=== PATIENT | male | born 1950 | race Caucasian/White ===

== ENCOUNTER 2019-04-20 18:51 | Inpatient (IN) | payer MEDICARE ==
[~2019-04-20] VITALS: Ht 198.1 cm; Wt 129.7 kg
[~2019-04-20 18:51] MED LIST: 24HOUR ALLERGY10 MG PO; ALBU90OI INH; ATOR40TA PO; Aspirin EC81 MG PO; Atarax10 MG PO; CETI5; CHOL10002 PO; COLCHICINE0.6 MG PO; DILT180 PO; DIVA500EC PO; FURO40 PO; Flonase 0.05% N16 GM; GABA400 PO; HYDHCL25 PO; HYDR-86 PO; Hydrocodone-Ap1 EA20 PO; INSDET100 SC; INSULANPEN PO; LIDOCAINE PATCH; LOPE2C PO; Lomotil Tablet1 EACH PO; METO50ER PO; Novolog100 UNIT/1 SQ; OFEV150 MG PO; PANT40 PO; PERIDEX15 ML MM; PRAZ1 PO; PRAZ5 PO; PRED20 PO; PYRI100 PO; RIFA550T2 PO; SERT50 PO; TRAZ50 PO; WARF5; XARELTO20 MG PO; [UNRECOGNIZED DRUG - CODE] PO; [UNRECOGNIZED DRUG - SUPPLY]
[2019-04-20 19:48] LABS: BASOPHILS ABSOLUTE AUTO 0.04 K/mm3 (0.00-0.23); BASOPHILS PERCENT AUTO 1 % (0-2); EOSINOPHILS ABSOLUTE AUTO 0.09 K/mm3 (0.00-0.68); EOSINOPHILS PERCENT AUTO 1 % (0-6); Hematocrit 34.4 % (37.0-53.0); Hemoglobin 11.3 g/dL (13.5-17.5); IMMATURE GRAN ABSOLUTE AUTO 0.39 K/mm3 (0.00-0.10); IMMATURE GRAN PERCENT AUTO 5 % (0-1); LYMPHOCYTES ABSOLUTE AUTO 1.39 K/mm3 (0.84-5.20); LYMPHOCYTES PERCENT AUTO 17 % (21-46); MONOCYTES ABSOLUTE AUTO 0.69 K/mm3 (0.16-1.47); MONOCYTES PERCENT AUTO 8 % (4-13); Mean Corpuscular HGB 33.3 pg (26.0-34.0); Mean Corpuscular HGB Conc 32.8 g/dL (31.5-36.5); Mean Corpuscular Volume 102 fL (80-100); Mean Platelet Volume 9.8 fL (9.1-12.4); NEUTROPHILS ABSOLUTE AUTO 5.63 K/mm3 (1.96-9.15); NEUTROPHILS PERCENT AUTO 68 % (41-73); Platelet Count 113 K/mm3 (150-400); RDW Coefficient Variation 13.5 % (11.7-14.2); RDW Standard Deviation 50.8 fL (35.1-46.3); Red Blood Cell Count 3.39 M/mm3 (4.30-5.90); White Blood Cell Count 8.23 K/mm3 (4.00-11.30)
[2019-04-20 20:00] LABS: Alanine Aminotransfer (ALT/SGP 21 U/L (12-78); Albumin, Blood 2.3 g/dL (3.4-5.0); Albumin/Globulin Ratio 0.7 (0.8-1.8); Alk Phos 78 U/L (50-136); Anion Gap 2 mmol/L (6-16); Aspartate Aminotrans (AST/SGOT 18 U/L (12-37); Bilirubin, Total 0.5 mg/dL (0.1-1.0); Blood Urea Nitrogen 10 mg/dL (8-24); Bun/Creatinine Ratio 10.8 (12.0-20.0); CO2, Blood 28 mmol/L (21-32); Calcium, Blood 8.2 mg/dL (8.5-10.1); Chloride, Blood 108 mmol/L (98-108); Creatinine, Blood 0.92 mg/dL (0.60-1.20); Globulin, Blood 3.4 g/dL (2.2-4.0); Glomerular Filtration Rate >60 (60-); Glucose, Blood 332 mg/dL (70-99); Potassium, Blood 4.6 mmol/L (3.5-5.5); Sodium, Blood 138 mmol/L (136-145); Total Protein, Blood 5.7 g/dL (6.4-8.2)
[2019-04-20 20:06] LABS: International Normalized Ratio 1.09; Prothrombin Time Results 11.5 Sec (9.7-11.5)
[2019-04-20] MEDS ORDERED: THERAPEUTIC SH177 ML TOP (21:29)
[2019-04-20] MEDS ORDERED: Questran4 GM PO (21:29)
[2019-04-20] MEDS ORDERED: MOTION RELIEF25 MG PO (21:35)
[2019-04-20] MEDS ORDERED: MAGNESIUM OXID500 MG PO (21:35)
[2019-04-20] MEDS ORDERED: POTCHL20ER PO (21:36)
[2019-04-20] MEDS ORDERED: TAMS.4ER PO (21:38)
[2019-04-20] MEDS ORDERED: Florastor250 MG PO (21:38)
[2019-04-20] MEDS ORDERED: VALACYCLOVIR1000 MG PO (21:38)
[2019-04-20] MEDS ORDERED: Hair, Skin & N1 EACH PO (21:41)
--- NOTE | 2019-04-21 00:15 | NUR ---
ADMISSION NOTE PT ARRIVED TO UNIT VIA STRECTHER AT 2326. AMBULATED TO BED INDEPENDENTLY, PAIN AND WINCING WHEN RISING AND DURING AMBULATION. REPORTED PAIN IN RECTAL AREA. PT AMBULATES TO BR AND HAS EPISODE OF BRIGHT RED STOOL FROM RECTUM. ASSISTED PT TO BED. ORIENTED PT TO RM AND CALL LT. ADMISSION COMPLETE. ASSUMING CARE OF PT.
--- NOTE | 2019-04-21 06:15 | NUR ---
SHIFT SUMMARY PT ADMITTED EARLIER IN SHIFT, C/O RECTAL BLEEDING AND PAIN AFTER COLONSCOPY 6 DAYS AGO. PT IS HAVING BRIGHT RED BLOOD ON TISSUE AFTER WIPING. PAIN IS MOST SEVERE WHEN AMBULATING AND SITTING, RELIEVED BEST BY LAYING ON SIDE. PT IS RECIEVING 25 MCG IV FENTANYL Q4H FOR PAIN WHICH PROVIDES ADEQUATE RELIEF. NPO PER ORDERS. CONSULT CALLED TO DR ABBOTT ANSWERING SERVICE, WILL ROUND IN AM. WILL CONT TO MONITOR AND PROVIDE CARE UNTIL PRESUMED BY ONCOMING RN.
--- NOTE | 2019-04-21 13:39 | NUR ---
PT TO DAY SURGERY FOR I&D. FAMILY AT BEDSIDE.
--- NOTE | 2019-04-21 13:52 | NUR ---
"DAY SURGERY RN | REPORT OFF TO MAKI MENG."
--- NOTE | 2019-04-21 16:17 | NUR ---
PT ARRIVED BACK ON THE MEDICAL UNIT FROM DAY SURGERY. PT IS AWAKE AND DENIES PAIN AT THIS TIME. PT REPORTED A MODERATE AMOUNT OF BLOOD IN THE TOILET AFTER HE SAT AND URINATED, THIS IS NORMAL PER OR NURSE. LORRAINE DRAIN INTACT, NO ACTIVE BLEEDING NOTED UPON ASSESSMENT. PT REQUESTED WATER AND ICE CREAM WHICH HE TOLERATED WELL. PTS SATS 83-85% ON ROOM AIR. PLACE ON 3L O2 VIA NASAL CANNULA AND SATS ARE AT 95%. DR. CAMPBELL STATED PT OK TO DISCHARGE FROM A SURGICAL STANDPOINT LIT [place] NOTIFIED OF SATS AND BLOOD AND DECIDED TO KEEP PT OVERNIGHT AND MONITOR SATS.
--- NOTE | 2019-04-21 17:23 | NUR ---
ASSUMED CARE OF THIS PT FOR DAY SHIFT. PT NPO STATUS TRANSFER TO OR FOR I/D. PT RETURNED TO MEDICAL UNIT AFTER PROCEDURE. PT SATS WERE LOW AND O2 WAS ADMINISTERED. KEEPING OVERNIGHT FOR OBSERVATION AND FOLLOW UP BLOOD WORK IN THE MORNING. PT DIET CHANGED TO ADA. PT RESTING COMFORTABLY.
--- NOTE | 2019-04-21 22:04 | NUR ---
WEENED OFF O2 WEENED DOWN TO RA FROM 2L VIA NC. EPS E/U ON RA, O2 SATS >94% ON CONT PULSE OX. WILL CONT TO MONITOR.
--- NOTE | 2019-04-21 22:04 | NUR ---
HYPERGLYCEMIA CBG IS 407 AFTER 10 UNITS HUMULIN R AND 10 UNITS LANTUS. REPORTED DIEGO CANTRELL. ORDERS TO RECHECK IN 1 HR IN GO FROM THERE. WILL CONT TO MONITOR.
[2019-04-22 05:19] LABS: BASOPHILS ABSOLUTE AUTO 0.02 K/mm3 (0.00-0.23); BASOPHILS PERCENT AUTO 0 % (0-2); EOSINOPHILS PERCENT AUTO 0 % (0-6); Hematocrit 34.2 % (37.0-53.0); Hemoglobin 11.3 g/dL (13.5-17.5); IMMATURE GRAN ABSOLUTE AUTO 0.33 K/mm3 (0.00-0.10); IMMATURE GRAN PERCENT AUTO 4 % (0-1); LYMPHOCYTES ABSOLUTE AUTO 1.38 K/mm3 (0.84-5.20); LYMPHOCYTES PERCENT AUTO 15 % (21-46); MONOCYTES ABSOLUTE AUTO 0.78 K/mm3 (0.16-1.47); MONOCYTES PERCENT AUTO 8 % (4-13); Mean Corpuscular HGB 32.8 pg (26.0-34.0); Mean Platelet Volume 9.6 fL (9.1-12.4); NEUTROPHILS ABSOLUTE AUTO 6.88 K/mm3 (1.96-9.15); NEUTROPHILS PERCENT AUTO 73 % (41-73); Platelet Count 125 K/mm3 (150-400); RDW Coefficient Variation 13.4 % (11.7-14.2); RDW Standard Deviation 48.9 fL (35.1-46.3); Red Blood Cell Count 3.45 M/mm3 (4.30-5.90); White Blood Cell Count 9.39 K/mm3 (4.00-11.30)
[2019-04-22 05:22] LABS: Mean Corpuscular Volume 99 fL (80-100)
--- NOTE | 2019-04-22 05:43 | NUR ---
SHIFT SUMMARY POST OP VITALS REMAIN STABLE. CBG ELEVATED EARLY TONIGHT, HOWEVER HAS BEGAN TRENDING DOWN. LAST WAS 349 @ 2300 LAST NIGHT. NO FURTHER ORDERS GIVEN BY HOSPITALIST. PIN MU DRAINING TO I&D IS WNL, MINIMAL BRIGHT RED RECTAL BLEEDING ON NOTED ON SHEETS WHEN PT IS UP. PT IS INDEPENDENT IN RM. PAIN IS WELL-CONTROLLED WITH PO NORCO PRN, HAS NOT NEEDED ANY PRN PAIN MEDS TONIGHT, STATES PAIN IS "CLOSE TO NONE" THIS AM. TITRATED TO RA, CONT PULSE OX IN PLACE. CPAP AT NIGHT. PT IS A POSS D/C BACK HOME TODAY. WILL CONT TO MONITOR AND PROVIDE CARE UNTIL PRESUMED BY ONCOMING RN.
[2019-04-22] MEDS ORDERED: AMOCLA875 PO (13:28)
--- NOTE | 2019-04-22 15:44 | NUR ---
1515 PT DISCHARGE REVIEWED WITH PT AND SPOUSE. PT VERBALIZED UNDERSTANDING MEDS AND INSTRUCT. IV PULLED INTACT. NO TELE. PT WHEELED TO DOOR BY ME.
== END 2019-04-22 15:17 | disposition home or self-care (01) | DRG 345 ==
LOC: ER 18:51 → MEDS 21:51
PROVIDERS: Emergency Medicine; Internal Medicine; Surgery; ADMIT Family Medicine
PROC: 0D9P0ZZ Drainage of Rectum, Open Approach (ICD-10-PCS; principal; 2019-04-21 12:30)
DX: K61.1 Rectal abscess (principal); J96.11 Chronic respiratory failure with hypoxia; I48.2 Chronic atrial fibrillation; I10 Essential (primary) hypertension; J84.10 Pulmonary fibrosis, unspecified; E11.65 Type 2 diabetes mellitus with hyperglycemia; G47.33 Obstructive sleep apnea (adult) (pediatric); N40.0 Benign prostatic hyperplasia without lower urinary tract symptoms; E78.5 Hyperlipidemia, unspecified; D69.6 Thrombocytopenia, unspecified; E11.40 Type 2 diabetes mellitus with diabetic neuropathy, unspecified; G89.29 Other chronic pain; M54.5 Low back pain; Z79.82 Long term (current) use of aspirin; Z79.4 Long term (current) use of insulin; Z79.51 Long term (current) use of inhaled steroids; Z79.899 Other long term (current) drug therapy; Z79.01 Long term (current) use of anticoagulants
CPT/HCPCS: 36415; 74177; 80053; 82947; 84484; 85025; 85610; 87070; 87075; 87076; 87185; 87205; 93005; 93010; 94660; 94761; 94762; 96365-59; 96375; 96376; 99285-25; A9270-GY; J1815; J2405; J2543; J2704; J3010; J7050; J7120; Q9967

== ENCOUNTER 2020-02-29 13:50 | Emergency (ER) | payer OTHER, MEDICARE ==
[~2020-02-29] VITALS: Ht 198.1 cm; Wt 134.7 kg
[~2020-02-29 13:50] MED LIST changes: +AMOCLA875 PO; +ATOR20 PO; +Cymbalta20 MG PO; +Florastor250 MG PO; +Hair, Skin & N1 EACH PO; +MAGNESIUM OXID500 MG PO; +MOTION RELIEF25 MG PO; +MULTIPLE VITAM1 EACH PO; +OYSTER SHELL 51 EACH PO; +POTCHL20ER PO; +PYRIDOXINE HCL PO; +Questran4 GM PO; +TAMS.4ER PO; +THERAPEUTIC SH177 ML TOP; +VALACYCLOVIR1000 MG PO; +ZYRTEC10 M2 PO
[2020-02-29] MEDS ORDERED: ALBU90OI INH (14:07)
[2020-02-29] MEDS ORDERED: BACL10 PO (14:08)
[2020-02-29] MEDS ORDERED: ATOR40TA PO (14:08)
[2020-02-29] MEDS ORDERED: BIOTENE PO (14:09)
[2020-02-29] MEDS ORDERED: VITAMIN D-32000 UNIT PO (14:10)
[2020-02-29 14:11] LABS: BASOPHILS ABSOLUTE AUTO 0.02 K/mm3 (0.00-0.23); BASOPHILS PERCENT AUTO 0 % (0-2); EOSINOPHILS PERCENT AUTO 1 % (0-6); Hematocrit 39.3 % (37.0-53.0); Hemoglobin 13.1 g/dL (13.5-17.5); IMMATURE GRAN ABSOLUTE AUTO 0.11 K/mm3 (0.00-0.10); IMMATURE GRAN PERCENT AUTO 1 % (0-1); LYMPHOCYTES ABSOLUTE AUTO 1.52 K/mm3 (0.84-5.20); LYMPHOCYTES PERCENT AUTO 19 % (21-46); MONOCYTES ABSOLUTE AUTO 0.51 K/mm3 (0.16-1.47); MONOCYTES PERCENT AUTO 6 % (4-13); Mean Corpuscular HGB 31.4 pg (26.0-34.0); Mean Corpuscular HGB Conc 33.3 g/dL (31.5-36.5); Mean Corpuscular Volume 94 fL (80-100); Mean Platelet Volume 9.8 fL (9.1-12.4); NEUTROPHILS ABSOLUTE AUTO 5.93 K/mm3 (1.96-9.15); NEUTROPHILS PERCENT AUTO 73 % (41-73); Platelet Count 125 K/mm3 (150-400); RDW Coefficient Variation 12.9 % (11.7-14.2); RDW Standard Deviation 44.3 fL (35.1-46.3); Red Blood Cell Count 4.17 M/mm3 (4.30-5.90); White Blood Cell Count 8.19 K/mm3 (4.00-11.30)
[2020-02-29] MEDS ORDERED: PERIDEX15 ML MM (14:11)
[2020-02-29] MEDS ORDERED: FLUT.05NI (14:14)
[2020-02-29] MEDS ORDERED: GABA400 PO (14:15)
[2020-02-29] MEDS ORDERED: FURO40 PO (14:15)
[2020-02-29] MEDS ORDERED: HYDROCODONE-AC1 EAC7 PO (14:16)
[2020-02-29] MEDS ORDERED: LEVEMIR100 UNIT/1 SC (14:18)
[2020-02-29] MEDS ORDERED: INSULIN AS100 UNIT/7 SC (14:18)
[2020-02-29] MEDS ORDERED: LIDO700A20 TOP (14:19)
[2020-02-29] MEDS ORDERED: ONDA4 PO (14:22)
[2020-02-29] MEDS ORDERED: NITR.4SL SL (14:22)
[2020-02-29] MEDS ORDERED: PRAZ2 PO (14:23)
[2020-02-29] MEDS ORDERED: PSYSENPA PO (14:23)
[2020-02-29] MEDS ORDERED: SACCHAROMYCES250 MG PO (14:24)
[2020-02-29 15:03] LABS: Alanine Aminotransfer (ALT/SGP 36 U/L (12-78); Albumin, Blood 2.9 g/dL (3.4-5.0); Albumin/Globulin Ratio 0.9 (0.8-1.8); Alk Phos 140 U/L (50-136); Anion Gap 5 mmol/L (6-16); Aspartate Aminotrans (AST/SGOT 34 U/L (12-37); Bilirubin, Total 0.5 mg/dL (0.1-1.0); Blood Urea Nitrogen 18 mg/dL (8-24); Bun/Creatinine Ratio 15.9 (12.0-20.0); CO2, Blood 29 mmol/L (21-32); Calcium, Blood 8.7 mg/dL (8.5-10.1); Chloride, Blood 101 mmol/L (98-108); Creatinine, Blood 1.13 mg/dL (0.60-1.20); Globulin, Blood 3.4 g/dL (2.2-4.0); Glomerular Filtration Rate >60 (60-); Glucose, Blood 393 mg/dL (70-99); Potassium, Blood 4.5 mmol/L (3.5-5.5); Sodium, Blood 135 mmol/L (136-145); Total Protein, Blood 6.3 g/dL (6.4-8.2)
[2020-02-29 15:43] LABS: Source, Urine Clean Catch
[2020-02-29 15:47] LABS: Appearance, Urine Clear (Clear); Bilirubin, Urine Neg (Neg); Blood, Urine 4+ (Neg); Color, Urine Yellow (P-Yellow); Glucose Qualitative, Urine 4+ (Neg); Ketones, Urine Neg (Neg); Leukocyte Esterase, Urine Neg (Neg); Nitrite, Urine Neg (Neg); Protein, Urine Neg (Neg); Urobilinogen, Urine NORM (Normal)
[2020-02-29] MEDS ORDERED: MECL25 PO (15:52)
[2020-02-29 15:55] LABS: Bacteria Rare /hpf; Squamous Epithelial Cells Not Seen /hpf (Few); White Blood Cells, Urine 0-2 /hpf (0-5)
== END 2020-02-29 16:07 | disposition home or self-care (01) ==
LOC: ER 13:50
PROVIDERS: Emergency Medicine
DX: H81.10 Benign paroxysmal vertigo, unspecified ear (principal); Z88.8 Allergy status to other drugs, medicaments and biological substances; Z79.899 Other long term (current) drug therapy; Z79.4 Long term (current) use of insulin; E11.9 Type 2 diabetes mellitus without complications; I48.91 Unspecified atrial fibrillation; I10 Essential (primary) hypertension; E78.5 Hyperlipidemia, unspecified; J44.9 Chronic obstructive pulmonary disease, unspecified; G47.33 Obstructive sleep apnea (adult) (pediatric)
CPT/HCPCS: 70450; 80053; 81001; 85025; 93005; 93010; 99285-25

== ENCOUNTER → 2020-06-18 | Outpatient (CLI) | payer OTHER, MEDICARE ==
[~2020-06-18] MED LIST changes: +BACL10 PO; +BIOTENE PO; +FLUT.05NI; +HYDROCODONE-AC1 EAC7 PO; +INSULIN AS100 UNIT/7 SC; +LEVEMIR100 UNIT/1 SC; +LIDO700A20 TOP; +MECL25 PO; +NITR.4SL SL; +ONDA4 PO; +PRAZ2 PO; +PSYSENPA PO; +SACCHAROMYCES250 MG PO; +VITAMIN D-32000 UNIT PO
[2020-06-18 20:01] LABS: Percent Saturation 64.4 % (20.0-50.0)
== END | disposition home or self-care (01) ==
LOC: LAB 17:48
PROVIDERS: Internal Medicine Hematology & Oncology
DX: E83.119 Hemochromatosis, unspecified (principal)
CPT/HCPCS: 82728; 83540; 83550

== ENCOUNTER → 2021-02-22 | Outpatient (CLI) | payer OTHER, MEDICARE ==
[2021-02-22 15:11] LABS: Percent Saturation 60.9 % (20.0-50.0)
== END | disposition home or self-care (01) ==
LOC: LAB SHORT 14:07 → LAB 14:07
PROVIDERS: Internal Medicine Hematology & Oncology
DX: E83.119 Hemochromatosis, unspecified (principal)
CPT/HCPCS: 82728; 83540; 83550

== ENCOUNTER 2022-07-18 00:14 | Emergency (ER) | payer OTHER ==
[~2022-07-18] VITALS: Ht 198.1 cm; Wt 127.0 kg
== END 2022-07-18 02:43 | disposition home or self-care (01) ==
LOC: ER 00:14
DX: T84.021A Dislocation of internal left hip prosthesis, initial encounter (principal); E11.9 Type 2 diabetes mellitus without complications; I48.91 Unspecified atrial fibrillation; E78.5 Hyperlipidemia, unspecified; I10 Essential (primary) hypertension; J44.9 Chronic obstructive pulmonary disease, unspecified; D64.9 Anemia, unspecified; N40.0 Benign prostatic hyperplasia without lower urinary tract symptoms; G47.33 Obstructive sleep apnea (adult) (pediatric); Z88.8 Allergy status to other drugs, medicaments and biological substances; Z79.899 Other long term (current) drug therapy; Z79.01 Long term (current) use of anticoagulants; X58.XXXA Exposure to other specified factors, initial encounter
CPT/HCPCS: 73502; J2704; J7030

== ENCOUNTER 2022-07-22 13:22 | Emergency (ER) | payer OTHER ==
[~2022-07-22] VITALS: Ht 198.1 cm; Wt 129.3 kg
[2022-07-22] MEDS ORDERED: CEPH500 PO (19:26)
== END 2022-07-22 19:42 | disposition home or self-care (01) ==
LOC: ER 13:22
DX: T84.021A Dislocation of internal left hip prosthesis, initial encounter (principal); L08.9 Local infection of the skin and subcutaneous tissue, unspecified; E11.9 Type 2 diabetes mellitus without complications; Y83.8 Other surgical procedures as the cause of abnormal reaction of the patient, or of later complication, without mention of misadventure at the time of the procedure; Z79.02 Long term (current) use of antithrombotics/antiplatelets; Z79.899 Other long term (current) drug therapy; Z79.4 Long term (current) use of insulin
CPT/HCPCS: 36415; 73502; J1170; J2405; J2704; J7030

== ENCOUNTER 2022-08-04 13:16 | Emergency (ER) | payer OTHER ==
[~2022-08-04] VITALS: Ht 198.1 cm; Wt 124.7 kg
[~2022-08-04 13:16] MED LIST changes: +CEPH500 PO
== END 2022-08-04 17:20 | disposition home or self-care (01) ==
LOC: ER 13:16
DX: T84.021A Dislocation of internal left hip prosthesis, initial encounter (principal); Y79.2 Prosthetic and other implants, materials and accessory orthopedic devices associated with adverse incidents; E11.42 Type 2 diabetes mellitus with diabetic polyneuropathy; I48.91 Unspecified atrial fibrillation; Z79.899 Other long term (current) drug therapy; Z79.4 Long term (current) use of insulin; Z79.01 Long term (current) use of anticoagulants
CPT/HCPCS: 27266; 72170; 73502; 96374-59; 96375-59; 99284-25; J1170; J2405; J2704; J7030

== ENCOUNTER 2022-08-11 19:55 | Emergency (ER) | payer OTHER ==
[~2022-08-11] VITALS: Ht 198.1 cm; Wt 122.5 kg
== END 2022-08-11 21:42 | disposition home or self-care (01) ==
LOC: ER 19:55
DX: T84.021A Dislocation of internal left hip prosthesis, initial encounter (principal); E11.9 Type 2 diabetes mellitus without complications; Y79.3 Surgical instruments, materials and orthopedic devices (including sutures) associated with adverse incidents; Z79.02 Long term (current) use of antithrombotics/antiplatelets; Z79.899 Other long term (current) drug therapy
CPT/HCPCS: 73502; J2704; J7030

== ENCOUNTER 2022-08-29 21:46 | Emergency (ER) | payer OTHER ==
[~2022-08-29] VITALS: Ht 198.1 cm; Wt 127.0 kg
[2022-08-29 22:50] LABS: Calcium, Ionized (POC) 1.16 mmol/L (1.10-1.46); Chloride (POC) 102 mmol/L (98-108); Creatinine (POC) 0.8 mg/dL (0.8-1.3); Glucose (ISTAT POC) 142 mg/dL (70-99); Potassium (POC) 3.9 mmol/L (3.5-5.5); Sodium (POC) 141 mmol/L (135-148); Total CO2 (POC) 28 mmol/L (21-32)
== END 2022-08-30 01:32 | disposition home or self-care (01) ==
LOC: ER 21:46
PROVIDERS: Emergency Medicine
DX: T84.021A Dislocation of internal left hip prosthesis, initial encounter (principal); E11.9 Type 2 diabetes mellitus without complications; Y83.8 Other surgical procedures as the cause of abnormal reaction of the patient, or of later complication, without mention of misadventure at the time of the procedure; X50.1XXA Overexertion from prolonged static or awkward postures, initial encounter; Z96.642 Presence of left artificial hip joint; Z79.02 Long term (current) use of antithrombotics/antiplatelets; Z79.899 Other long term (current) drug therapy; Z79.4 Long term (current) use of insulin
CPT/HCPCS: 73501; 73502; 80047; 85014; J2704; J3010; J7030

== ENCOUNTER 2022-09-10 20:30 | Emergency (ER) | payer OTHER ==
[~2022-09-10] VITALS: Ht 198.1 cm; Wt 131.5 kg
[2022-09-10] MEDS ORDERED: HYDCHL25 PO (21:42)
[2022-09-10] MEDS ORDERED: FAMO10 PO (21:42)
== END 2022-09-11 01:47 | disposition home or self-care (01) ==
LOC: ER 20:30
DX: T84.021A Dislocation of internal left hip prosthesis, initial encounter (principal); Y79.2 Prosthetic and other implants, materials and accessory orthopedic devices associated with adverse incidents; E11.42 Type 2 diabetes mellitus with diabetic polyneuropathy; I48.91 Unspecified atrial fibrillation; Z79.899 Other long term (current) drug therapy; Z79.4 Long term (current) use of insulin; Z79.01 Long term (current) use of anticoagulants
CPT/HCPCS: 27265; 73501; 73502; 96374-59; 99152; 99284-25; J1170; J2704

== ENCOUNTER 2023-01-09 19:01 | Inpatient (IN) | payer OTHER ==
[~2023-01-09] VITALS: Ht 198.1 cm; Wt 121.0 kg
[~2023-01-09 19:01] MED LIST changes: +FAMO10 PO; +HYDCHL25 PO
[2023-01-09] MEDS ORDERED: JARDIANCE25 MG (19:21)
[2023-01-09] MEDS ORDERED: HYDPAM50 PO (19:23)
[2023-01-09 19:35] LABS: BASOPHILS ABSOLUTE AUTO 0.02 K/mm3 (0.00-0.23); BASOPHILS PERCENT AUTO 0 % (0-2); EOSINOPHILS ABSOLUTE AUTO 0.11 K/mm3 (0.00-0.68); EOSINOPHILS PERCENT AUTO 1 % (0-6); Hematocrit 48.3 % (37.0-53.0); IMMATURE GRAN ABSOLUTE AUTO 0.11 K/mm3 (0.00-0.10); IMMATURE GRAN PERCENT AUTO 1 % (0-1); LYMPHOCYTES ABSOLUTE AUTO 1.79 K/mm3 (0.84-5.20); LYMPHOCYTES PERCENT AUTO 23 % (21-46); MONOCYTES ABSOLUTE AUTO 0.67 K/mm3 (0.16-1.47); MONOCYTES PERCENT AUTO 9 % (4-13); Mean Corpuscular HGB 30.9 pg (26.0-34.0); Mean Corpuscular HGB Conc 33.1 g/dL (31.5-36.5); Mean Corpuscular Volume 93 fL (80-100); Mean Platelet Volume 10.1 fL (9.1-12.4); NEUTROPHILS PERCENT AUTO 66 % (41-73); Platelet Count 142 K/mm3 (150-400); RDW Coefficient Variation 13.2 % (11.7-14.2); RDW Standard Deviation 46.2 fL (35.1-46.3); Red Blood Cell Count 5.17 M/mm3 (4.30-5.90)
[2023-01-09 19:47] LABS: Albumin, Blood 2.9 g/dL (3.4-5.0); Albumin/Globulin Ratio 0.9 (0.8-1.8); Bilirubin, Total 0.5 mg/dL (0.1-1.0); Bun/Creatinine Ratio 18.1 (12.0-20.0); Calcium, Blood 8.7 mg/dL (8.5-10.1); Creatinine, Blood 0.94 mg/dL (0.60-1.20); Globulin, Blood 3.3 g/dL (2.2-4.0); Potassium, Blood 4.3 mmol/L (3.5-5.5); Total Protein, Blood 6.2 g/dL (6.4-8.2)
[2023-01-09 22:50] VITALS: BP 148/84
[2023-01-09] MEDS ORDERED: HYDHCL25 (23:52)
[2023-01-10] VITALS (20 sets, daily range): BP systolic 102–151; BP diastolic 61–94
[2023-01-10 05:07] LABS: BASOPHILS ABSOLUTE AUTO 0.02 K/mm3 (0.00-0.23); BASOPHILS PERCENT AUTO 0 % (0-2); EOSINOPHILS ABSOLUTE AUTO 0.14 K/mm3 (0.00-0.68); EOSINOPHILS PERCENT AUTO 2 % (0-6); Hematocrit 47.2 % (37.0-53.0); Hemoglobin 15.7 g/dL (13.5-17.5); IMMATURE GRAN ABSOLUTE AUTO 0.05 K/mm3 (0.00-0.10); IMMATURE GRAN PERCENT AUTO 1 % (0-1); LYMPHOCYTES ABSOLUTE AUTO 1.37 K/mm3 (0.84-5.20); LYMPHOCYTES PERCENT AUTO 19 % (21-46); MONOCYTES ABSOLUTE AUTO 0.59 K/mm3 (0.16-1.47); MONOCYTES PERCENT AUTO 8 % (4-13); Mean Corpuscular HGB 30.8 pg (26.0-34.0); Mean Corpuscular HGB Conc 33.3 g/dL (31.5-36.5); Mean Corpuscular Volume 93 fL (80-100); Mean Platelet Volume 10.1 fL (9.1-12.4); NEUTROPHILS ABSOLUTE AUTO 5.24 K/mm3 (1.96-9.15); NEUTROPHILS PERCENT AUTO 71 % (41-73); Platelet Count 114 K/mm3 (150-400); RDW Coefficient Variation 13.4 % (11.7-14.2); RDW Standard Deviation 46.1 fL (35.1-46.3); White Blood Cell Count 7.41 K/mm3 (4.00-11.30)
[2023-01-10 05:27] LABS: Calcium, Blood 8.3 mg/dL (8.5-10.1); Potassium, Blood 4.6 mmol/L (3.5-5.5)
--- NOTE | 2023-01-10 06:07 | NUR ---
SHIFT SUMMARY PT ER ADMIT THIS SHIFT FOR R HIP FRACTURE AFTER GLF. PT HAS BEEN ADMITTED FOR SURGERY POSSIBLY TODAY, HE HAS BEEN NPO SINCE MIDNIGHT. PT PAIN HAS BEEN MANAGED PER EMAR WITH EFFECT. PT HAS SEVERAL CHRONIC FOOT WOUNDS [facility] PICTURES TAKEN OF WOUNDS AND THEY HAVE BEEN CLEANED AND REDRESSED. PT REPORTS CHRONIC NEUROPATHY IN LOWER EXT. HX OF TYPE 2 DM. VITALS ARE STABLE. NO ACUTE CHANGES SINCE ADMISSION, BED IN LOWEST POSITION, CALL LIGHT WITHIN REACH.
--- NOTE | 2023-01-10 11:30 | NUR ---
ARRIVAL TO ROOM PT ARRIVED TO THE ROOM FROM PACU AT APPROXIMATELY 1125. UPON ARRIVAL PT WAS DIAPHORETIC. HR ELEVATED 110-119 UPON ARRIVAL, PT DENIED DIZZINESS, CHEST PAIN AND SHORTNESS OF BREATH. R HIP DRESSING C/D/I. PT ABLE TO MOVE BLE. PULSES PRESENT AND PALPABLE TO BLE.
--- NOTE | 2023-01-10 12:00 | NUR ---
HOME MEDS HOME MED LIST REQUESTED FROM PATIENTS PHARMACY, PT REPORTED [facility]. SOME MEDICATIONS MISSING FROM PT'S [facility] LIST. PT STATES HE ALSO GETS MEDICATION AT [facility]. PT ALSO ASKED HIS TO BRING IN HOME MEDICATIONS FOR CLARIFICATION.
[2023-01-10] MEDS ORDERED: BASAGLAR K100 UNIT/6 SC (12:10)
--- NOTE | 2023-01-10 12:40 | NUR ---
TACHYCARDIA PT BECAME INCREASINGLY DIAPHORETIC AND STARTED TO COMPLAIN OF SHORTNESS OF BREATH. TELE MONITOR SHOWED PT IN AFIB WITH HR UP TO 150. DR. WHITE NOTIFIED AT METOPROLOL IV WAS GIVEN TO LOWER HR. PT RESPONDED WELL AND HR DROPPED DOWN TO 119. PT REPORTED SHORTNESS OF BREATH STARTED TO RESOLVE. DR. WHITE AT THE BEDSIDE.
--- NOTE | 2023-01-10 14:30 | NUR ---
SHORTNESS OF BREATH PT STARTED TO COMPLAIN OF RETURN OF SHORTNESS OF BREATH AT 1340. PT PALE AND DIAPHORETIC. RESP RATE AND EFFORT INCREASED. PT ALSO COMPLAINING OF L SHOULDER PAIN ON INSIPRATION. MESSAGE LEFT FOR DR. WHITE AT 1346. SPOKE WITH DR. WHITE AT 1350 REGARDING CONCERNS. EKG COMPLETED. CHEST XRAY AND TROPONIN ORDERED. FENTAYL GIVEN BY WALE MENG FOR PAIN. SHORTNESS OF BREATH AND SHOULDER PAIN RESOLVED WITHOUT FURTHER INTERVENTION.
[2023-01-10] MEDS ORDERED: SYNJARDY XR 121 EAC1 PO (14:57)
[2023-01-10] MEDS ORDERED: CHLORHEXIDINE TOP (15:14)
--- NOTE | 2023-01-10 16:00 | NUR ---
HOME MEDICATION LIST UPDATED AND COMPLETED AFTER FAMILY BROUGHT AND LIST WAS AGAIN CLARIFIED WITH THE PATIENT.
--- NOTE | 2023-01-10 16:00 | NUR ---
DR. WHITE NOTIFIED OF TROPONIN RESULTS, XRAY RESULTS AND EKG RHYTHM.
--- NOTE | 2023-01-10 17:15 | NUR ---
SHIFT SUMMARY PT IS POD#0 FROM R HIP PINNING WITH DR. BABCOCK. PAIN MANAGED WITH FENTAYL POST-OP. PT IS TOLERATING PO. PT HAD AFIB WITH RVR POST-OP, PT IMPROVED, SEE NOTE. FAMILY AT THE BEDSIDE FOR SUPPORT.
[2023-01-11 00:19] VITALS: BP 118/66
[2023-01-11 04:50] LABS: BASOPHILS ABSOLUTE AUTO 0.03 K/mm3 (0.00-0.23); BASOPHILS PERCENT AUTO 0 % (0-2); EOSINOPHILS ABSOLUTE AUTO 0.18 K/mm3 (0.00-0.68); EOSINOPHILS PERCENT AUTO 2 % (0-6); Hematocrit 45.5 % (37.0-53.0); Hemoglobin 14.8 g/dL (13.5-17.5); IMMATURE GRAN ABSOLUTE AUTO 0.07 K/mm3 (0.00-0.10); IMMATURE GRAN PERCENT AUTO 1 % (0-1); LYMPHOCYTES ABSOLUTE AUTO 1.22 K/mm3 (0.84-5.20); LYMPHOCYTES PERCENT AUTO 15 % (21-46); MONOCYTES ABSOLUTE AUTO 0.61 K/mm3 (0.16-1.47); MONOCYTES PERCENT AUTO 7 % (4-13); Mean Corpuscular HGB 30.6 pg (26.0-34.0); Mean Corpuscular HGB Conc 32.5 g/dL (31.5-36.5); Mean Corpuscular Volume 94 fL (80-100); NEUTROPHILS PERCENT AUTO 75 % (41-73); Platelet Count 96 K/mm3 (150-400); RDW Coefficient Variation 13.9 % (11.7-14.2); RDW Standard Deviation 48.1 fL (35.1-46.3); Red Blood Cell Count 4.83 M/mm3 (4.30-5.90); White Blood Cell Count 8.41 K/mm3 (4.00-11.30)
[2023-01-11 05:08] LABS: Bun/Creatinine Ratio 22.4 (12.0-20.0); Calcium, Blood 8.1 mg/dL (8.5-10.1); Creatinine, Blood 1.07 mg/dL (0.60-1.20); Magnesium, Blood 1.9 mg/dL (1.6-2.4); Potassium, Blood 4.6 mmol/L (3.5-5.5)
--- NOTE | 2023-01-11 05:10 | NUR ---
SHIFT SUMMARY NO ACUTE CHANGES OVERNIGHT, POD 0 R HIP PINNING. PT HAS RESTED MOST OF THE NIGHT, PAIN WELL CONTROLLED WITH OXYCODONE 5 MG. PT MEDICATED FOR PAIN PER EMAR. POST OP VITALS ARE STABLE, RATE IS CONTROLLED ON TELE. BULKY DRESSING INTACT TO RIGHT HIP CLEAN AND DRY. PT CONTINUES TO TOLERATE PO INTAKE. IVF INFUSING T/O THE SHIFT. BED IN LOWEST POSITION, CALL LIGHT WITHIN REACH.
[2023-01-11 05:11] VITALS: BP 123/75
[2023-01-11 07:13] VITALS: BP 143/86
[2023-01-11 14:35] VITALS: BP 135/84
[2023-01-11 18:55] VITALS: BP 140/86
--- NOTE | 2023-01-11 19:59 | NUR ---
SHIFT SUMMARY PT IS POD#1 FROM R HIP PINNING WITH DR. BABCOCK. PT GOT OOB TO THE RECLINER TODAY AND TOLERATED WELL. PT REPORTS SOME CONCERNS ABOUT PAIN MANAGEMENT AND REPORTED OXYCODONE IS NOT LASTING 6 HOURS, DR. WHITE NOTIFIED. DESPITE PAIN PT WAS ABLE TO GET OOB, WORK WITH THERAPY AND SIT IN THE RECLINER. VSS. REPORT GIVEN TO ANUPAM MENG.
[2023-01-11 22:25] VITALS: BP 158/88
--- NOTE | 2023-01-11 23:15 | NUR ---
PT WITH PRIOR EPISODE OF A FIB WITH RVR NOTED POSTOP. REPORTED RESOLVED WITH RESUME OF METOPROLOL.PT C/O SOB WITH MINIMAL ACTIVITY IN BED TO USE URINAL. PT DID NOT STAND OR MOVE TO EDGE OF BED.MOTIVATIONAL SPEAKER REPORTS PT HAS HAD SPIKES OF HEART RATE UP TO 120 WITH ACTIVITY. PT VERB HE HAS BEEN SOB WITH MINIMAL MOVEMENT IN BED SINCE OR AND NOW REPORTS THIS HAS INCREASED AND HAS TAKEN LONGER TO RECOVER.RESP RATE 28 INCREASED 02 TO 5L N/C.PT ALSO C/O CHEST PRESSURE POINTS TO AREA OF HEART.PT VERB THIS ALSO HAS BEEN HAPPENING SINCE POSTOP, BUT AGAIN STATES HAS INCREASED.PT VERB HX OF OPEN PERICARDIAL WINDOW DONE APPROX 3+ YRS AGO AND HAS NOT SEEN CARDIOOLGY FOR FOLLOW UP FOR 1+ YEAR AND REPORTS HAS NOT HAD ECHO DONE FOR " A LONG TIME".PT REPORTS THIS CHEST PRESSURE TO BE ONGOING WITH INTERMITTENT ACTIVITY AND PT STATES PRESSURE NOW FEELING VERY MUCH LIKE IT FELT PRIOR TO PERICARDIAL WINDOW OPENING.PT STATING HE DOES NOT BELIEVE HE WAS DIZZY PRIOR TO HIS FALL BRINGING HIM TO HOSPITAL, BUT STATES HE IS CONCERNED IT MAY BE RELATED TO HIS CARDIAC CONDITION. I CALLED DR BANUELOS AND ADVISED OF ABOVE.DR ABARCA FOR ECHO THURSDAY AND WILL FURTHER REVIEW AND PUT IN ORDERS APPROPRIATE.
[2023-01-12 04:30] LABS: Hematocrit 44.1 % (37.0-53.0); Hemoglobin 14.8 g/dL (13.5-17.5); Mean Corpuscular HGB 31.1 pg (26.0-34.0); Mean Corpuscular HGB Conc 33.6 g/dL (31.5-36.5); Mean Corpuscular Volume 93 fL (80-100); Mean Platelet Volume 9.5 fL (9.1-12.4); Platelet Count 90 K/mm3 (150-400); RDW Coefficient Variation 13.4 % (11.7-14.2); RDW Standard Deviation 45.8 fL (35.1-46.3); Red Blood Cell Count 4.76 M/mm3 (4.30-5.90); White Blood Cell Count 7.08 K/mm3 (4.00-11.30)
[2023-01-12 05:19] VITALS: BP 148/93
--- NOTE | 2023-01-12 06:38 | NUR ---
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
[2023-01-12 07:52] VITALS: BP 158/86
[2023-01-12 14:42] VITALS: BP 139/90
--- NOTE | 2023-01-12 18:44 | NUR ---
SHIFT SUMMARY ALERT, ORIENTED, PLEASANT. RESTING IN BED FOR MOST OF DAY PENDING ECHO RESULTS. DID ASSISTE PATIENT UP TO RECLINER FOR DINNER, TOLERATED WELL. REQUIRES 2L O2 VIA NC. TELE AFIB. TOLERATING ADA DIET AND LIQUIDS. VOIDING WELL. AQUACEL C/D/I. VOIDING WELL. PAIN CONTROLLED WITH PO PERCOCET. WILL REPORT OFF TO MASTER RIGGER RN.
[2023-01-12 20:06] VITALS: BP 125/91
[2023-01-13 04:26] VITALS: BP 115/81
--- NOTE | 2023-01-13 07:26 | NUR ---
SHIFT SUMMARY PT A&OX4, PLEASANT AND COOPERATIVE WITH CARE. NO ACUTE CHANGES. MEDICATED FOR PAIN PER EMAR. TOLERATING PO INTAKE, NO NAUSEA. REMAINS ON 2L O2, SATS >90. 1 ASSIST WITH FWW. AQUACEL TO R HIP C/D/I. CALLS APPROPRIATELY, CALL LIGHT WITHIN REACH.
[2023-01-13 07:39] VITALS: BP 136/82
--- NOTE | 2023-01-13 11:11 | NUR ---
Pt. is awake in bed and welcomes my visit. Pt. is pleasant but is unsettled by the recurring issues he has had with multiple hip issues. Listen with empathy and a calming presence. Facilitate a life review and establish rapport. Prayed with Pt. Pt. 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 Pt. verbalized gratitude for the spiritual care visit and shook this gastroenterologist's hand. Will remain avilable to Pt.
[2023-01-13 14:44] VITALS: BP 136/97
--- NOTE | 2023-01-13 18:12 | NUR ---
SHIFT SUMMARY POD3 L HIP PINNING, A/OX4, VSS, TOLERATING PO, ABLE TO AMBULATE WITH FWW/GB/NURSE ASSIST, PT HAS LONG LEGS WHICH MAKES STANDING FROM THE CHAIR AND TOILET DIFFICULT BUT HE IS ABLE TO DO SO WITH SOME ASSISTANCE, WORKED WITH THERAPY TODAY, PENDING TRANSFER TO SNF FOR REHAB, NO ACUTE EVENTS THIS SHIFT, CALL LIGHT IN REACH, WILL CTM AND REPORT TO MATHIEU BO RN.
[2023-01-13 19:51] VITALS: BP 142/95
[2023-01-14 04:47] VITALS: BP 148/92
--- NOTE | 2023-01-14 04:51 | NUR ---
SHIFT SUMMARY POD4 RIGHT HIP PINNING. DRESSING IS C/D/I, SENSATION AND CIRCULATION IS INTACT IN RLE. VSS. TELE READS AFIB. PT SLEPT WELL T/O THE NIGHT. VOIDING W/O DIFFICULTY. TOLLERATING PO INTAKE W/O N/V. DID NOT AMBULATE T/O THE NIGHT D/T SLEEPING. NO ACUTE EVENTS NOTED. PLAN FOR PT TO D/C TO SNF WHEN A BED IS AVAILABLE. THE PATIENT IS CURRENTLY RESTING, IN NO DISTRESS, CALL LIGHT IN REACH
[2023-01-14 06:40] LABS: Hematocrit 43.8 % (37.0-53.0); Hemoglobin 14.7 g/dL (13.5-17.5); Mean Corpuscular HGB 30.4 pg (26.0-34.0); Mean Corpuscular HGB Conc 33.6 g/dL (31.5-36.5); Mean Corpuscular Volume 91 fL (80-100); Mean Platelet Volume 10.1 fL (9.1-12.4); Platelet Count 100 K/mm3 (150-400); RDW Coefficient Variation 13.2 % (11.7-14.2); RDW Standard Deviation 43.8 fL (35.1-46.3); Red Blood Cell Count 4.83 M/mm3 (4.30-5.90); White Blood Cell Count 5.53 K/mm3 (4.00-11.30)
[2023-01-14 07:04] VITALS: BP 162/91
[2023-01-14 14:42] VITALS: BP 154/99
--- NOTE | 2023-01-14 15:24 | NUR ---
SHIFT SUMMARY: POST OP DAY 4 FOLLOWING RIGHT HIP PINNING. SURGICAL SITE APPEARS C/D/I WITH AQUACEL IN PLACE. PATIENT REPORTS PAIN AT SITE OF INCISION. TREATED WITH ORAL ANALESICS. PATIENT A/OX4. VITAL SIGNS WNL. ELEVATED BLOOD SUGAR LEVEL AT LUNCH. TREATED WITH HUMALOG LISPRO INSULIN INJECTION. PATIENT IS A SBA WITH FWW. AMBULATED MULTIPLE TIMES TO TOILET WITH SUCCESSFUL BM AND NO REPORTED DIFFICULTIES URINATING. PATIENT RECEIVING ADEQUATE NUTRITION INTAKE EVIDENT BY COMPLETION OF ALL MEALS. PATIENT REPORTS NO NEW NUMBNESS AND TINGLING. FOOT WOUNDS ASSESSED AND REDRESSED WITH MEPILEX ON LEFT HEEL AND RIGHT SIDE OF FOOT. PATIENT RECEVING 2L O2 VIA NC. PATIENT SITTING IN RECLINER WITH CALL LIGHT IN REACH. LEGS ELEVATED. PATIENT AWAITING DISCHARGE TO SNF, FOLLOWING AUTHORIZATION OF INSURANCE.
--- NOTE | 2023-01-14 15:53 | NUR ---
SHIFT SUMMARY: POD 4 RIGHT HIP PINNING PATIENT IS A&OX4. VS ARE WNL AND IS ON HIS BASELINE OXYGEN WITH 2L NC. PAIN IS MANAGED WITH ORAL PAIN MEDICATIONS. HIS RIGHT HIP HAS AN AQUACEL THAT IS C/D/I. PATIENT HAS A HX OF NEUROPATHY AND REPORTS THAT IT IS AT HIS BASELINE WITH NO NEW NUMBNESS. HE IS ABLE TO MOVE ALL FINGERS AND TOES WHEN ASKED. NEW MEPELIX DRESSINGS WERE APPLIED TO BOTH HEELS THAT ARE ALSO C/D/I. HE IS A SBA WITH FWW AND GAIT BELT. HE IS VOIDING AND HAVING BMS WELL TOLERATING PO INTAKE. PATIENT CALLS APPROPRIATELY. HE IS LAYING IN BED NOW WITH CALL LIGHT IN REACH. THE PLAN IS FOR THE PATIENT TO DISCHARGE TO A SNF ONCE INSURANCE HAS BEEN APPROVED.
[2023-01-14 19:43] VITALS: BP 164/83
[2023-01-15 04:09] VITALS: BP 136/87
--- NOTE | 2023-01-15 04:28 | NUR ---
SHIFT SUMMARY POD5 RIGHT HIP PINNING. SENSATION AND CIRCULATION REMAINS INTACT. DRESSING IS C/D/I. VSS, TELE READS AFIB 80'S. PT SLEPT WELL T/O THE NIGHT. OOB TO USE THE RESTROOM WITH MIN ASSIT, FWW AND GT BELT. TOLLERATING PO INTAKE W/O N/V. VOIDING W/O DIFFICULTY, PASSING FLATTUS. MEDICATED FOR PAIN WTIH PERCOCET. NO ACUTE EVENTS NOTED. PLAN FOR PT TO [facility]. THE PATIENT IS CURRENTLY SLEEPING, IN NO DISTRESS, CALL LIGHT IN REACH
[2023-01-15 07:05] VITALS: BP 133/87
--- NOTE | 2023-01-15 07:15 | NUR ---
PATIENT CONSENT STATEMENT. PATIENT CONSENTED THIS 2ND YEAR [facility] [place] PARTICIPATE IN HIS CARE TODAY.
[2023-01-15 09:52] VITALS: BP 118/82
--- NOTE | 2023-01-15 14:02 | NUR ---
Pt. is awake in bed and welcomes my visit. Pt. is pleasant, and displays a positive spirit as he welcomes me Facilitated an update of prognosis plans, and Pt. displayed evidence of awareness and engagement. In our previous visit, the Pt. displayed eviudence of a spiritual breakthough. Considered matters of culture. Pt. verbalizes gratitude for the spiritual care visit.
[2023-01-15 15:16] VITALS: BP 115/81
--- NOTE | 2023-01-15 17:06 | NUR ---
END OF SHIFT SUMMARY. PT'S INCISION IS CLEAN, DRY, AND INTACT WITH SCANT DRAINAGE AND AQUACEL INPLACE. PT MEDICATED FOR PAIN WITH TYLENOL AND PERCOCET X1 WITH GOOD RELIEF. PT TOLERATING PO INTAKE. O2 REMAINING ABOVE 92% WITH O2 VIA NC.
[2023-01-15 19:32] VITALS: BP 128/82
[2023-01-16 04:57] VITALS: BP 137/83
[2023-01-16 07:50] VITALS: BP 130/94
[2023-01-16 15:12] VITALS: BP 144/97
--- NOTE | 2023-01-16 18:05 | NUR ---
PT AMBULATING IN ROOM WITH 1 PERSON ASSIST. PT ANTICIPATES DISCHARGE TO [facility] ON 01/18/23 . RIGHT HIP DRESSING INTACT, PT HAS DENIED NEED FOR PAIN MEDS THROUGHOUT SHIFT.
[2023-01-16 19:19] VITALS: BP 126/78
[2023-01-17 04:28] VITALS: BP 117/84
--- NOTE | 2023-01-17 07:25 | NUR ---
SHIFT SUMMARY AOX4. VSS. TELE AFIB HR 80'S. SPO2 >90% ON BASELINE 2L O2. POD 6-R HIP PINNING, REPORTS 7/10 PAIN, MEDICATED 1x c PERCOCET @[facility] & PT DENIES PAIN THIS AM, STATES ONLY ACHY & IN HIP. DRESSING C/D/I. CALL LIGHT IN REACH, ABLE TO MAKE NEEDS KNOWN.
[2023-01-17 07:34] VITALS: BP 133/87
[2023-01-17 15:34] VITALS: BP 151/92
--- NOTE | 2023-01-17 16:14 | NUR ---
CHEST PRESSURE PT REPORTING PRESSURE ON THE LEFT SIDE OF HIS CHEST, EKG DONE, MD CONSULTED WHO REPORTED THIS IS NOT A NEW ISSUE FOR THIS PATIENT WHO HAD C/O THIS ON 01/10 AFTER WHICH AN ECHO AND CARDIAC WORK UP WAS COMPLETED.
[2023-01-17 19:40] VITALS: BP 131/84
[2023-01-18 03:12] VITALS: BP 121/76
[2023-01-18 03:30] LABS: BASOPHILS ABSOLUTE AUTO 0.04 K/mm3 (0.00-0.23); BASOPHILS PERCENT AUTO 1 % (0-2); EOSINOPHILS ABSOLUTE AUTO 0.24 K/mm3 (0.00-0.68); EOSINOPHILS PERCENT AUTO 3 % (0-6); Hematocrit 43.3 % (37.0-53.0); Hemoglobin 14.8 g/dL (13.5-17.5); IMMATURE GRAN PERCENT AUTO 1 % (0-1); LYMPHOCYTES ABSOLUTE AUTO 1.59 K/mm3 (0.84-5.20); LYMPHOCYTES PERCENT AUTO 20 % (21-46); MONOCYTES ABSOLUTE AUTO 0.69 K/mm3 (0.16-1.47); MONOCYTES PERCENT AUTO 9 % (4-13); Mean Corpuscular HGB 30.8 pg (26.0-34.0); Mean Corpuscular HGB Conc 34.2 g/dL (31.5-36.5); Mean Corpuscular Volume 90 fL (80-100); Mean Platelet Volume 9.5 fL (9.1-12.4); NEUTROPHILS ABSOLUTE AUTO 5.34 K/mm3 (1.96-9.15); NEUTROPHILS PERCENT AUTO 67 % (41-73); Platelet Count 132 K/mm3 (150-400); RDW Coefficient Variation 13.2 % (11.7-14.2); RDW Standard Deviation 43.6 fL (35.1-46.3); Red Blood Cell Count 4.81 M/mm3 (4.30-5.90)
[2023-01-18 03:51] LABS: Albumin, Blood 2.4 g/dL (3.4-5.0); Anion Gap 5 mmol/L (6-16); Blood Urea Nitrogen 24 mg/dL (8-24); Bun/Creatinine Ratio 25.5 (12.0-20.0); CO2, Blood 29 mmol/L (21-32); Calcium, Blood 9.1 mg/dL (8.5-10.1); Chloride, Blood 103 mmol/L (98-108); Creatinine, Blood 0.94 mg/dL (0.60-1.20); Glomerular Filtration Rate 86 (60-); Glucose, Blood 203 mg/dL (70-99); Phosphorus, Blood 3.7 mg/dL (2.5-4.9); Potassium, Blood 4.6 mmol/L (3.5-5.5); Sodium, Blood 137 mmol/L (136-145)
--- NOTE | 2023-01-18 05:28 | NUR ---
SHIFT SUMMARY POD 7, R HIP PINNING. AQUACELL C/D/I. PT DENIES N/V AND REPORTS NEUROPATHY UP TO SHINS. FOAM DRESSINGS T/O BL HEELS/TOES R/T DIABETIC ULCERS MAINTAINED BY [facility]. TELE IN PLACE- AFIB @77 BPM. PT DENIES CP/ SOB AT THIS TIME. BIOX 99%, RT TURNED O2 OFF. REASSESSMENT AT HS 91%, REPLACED O2 @ 2L NC FOR SLEEP. MEDICATED FOR PAIN X1 @[facility]. PLANS FOR DC TO [place] THURSDAY.
[2023-01-18 07:26] VITALS: BP 134/89
[2023-01-18 15:58] VITALS: BP 138/83
--- NOTE | 2023-01-18 20:00 | NUR ---
SHIFT SUMMARY S/P R HIP PINNING, A/OX4, VSS, TOLERATING PO, PAIN WELL MANAGED PER EMAR, PT SPENT MOST OF THE DAY UP TO THE CHAIR, AMBULATED TO THE BATHROOM WHEN NEEDING TO, AMBULATED IN THE HALLS WITH NURSE ASSISTANCE, DOES WELL WHEN WALKING BUT NEEDS HELP STANDING UP FROM A SEATED POSITION. NO ACUTE EVENTS THIS SHIFT, CALL LIGHT IN REACH, REPORT GIVEN TO ANUPAM RN.
[2023-01-18 20:10] LABS: SARS-Cov-2 (COVID-19) PCR, MMC NEGATIVE (NEGATIVE)
[2023-01-19 04:28] VITALS: BP 131/85
--- NOTE | 2023-01-19 07:13 | NUR ---
SHIFT SUMMARY POD8, R HIP PINNING. DECREASED SENSATION TO BLLE R/T NEUROPATHY. FOAM DRESSING TO BL FEET CHANGED. VSS, NO ACUTE CHANGES. POSSIBLE DISCHARGE TODAY, PT REPORTS REHAB AT [place].
[2023-01-19 07:16] VITALS: BP 135/95
--- NOTE | 2023-01-19 12:25 | NUR ---
TELEPHONE CALL TO HOSPITALIST DR WHITE RE CBG 356, GAVE 5 UNITS IN ACCORDANCE WITH LSS. DR HENNING TO GIVE 4 ADDITIONAL UNITS.
--- NOTE | 2023-01-19 13:41 | NUR ---
SHIFT SUMMARY - TRANSFER PT A&OX4, VSS/2LNC, AMB SBA FWW/GB, TO BRP/VOIDING, UP TO CHAIR T/O SHIFT, BRIAN PO, PAIN MANAGED. REPORT CALLED TO [id number].
== END 2023-01-19 12:47 | DRG 481 ==
LOC: ER 19:01 → SURS 22:38
PROVIDERS: Internal Medicine; Orthopaedic Surgery; Student in an Organized Health Care Education/Training Program; ADMIT Student in an Organized Health Care Education/Training Program
PROC: 0QH634Z Insertion of Internal Fixation Device into Right Upper Femur, Percutaneous Approach (ICD-10-PCS; principal; 2023-01-10 09:30)
DX: S72.001A Fracture of unspecified part of neck of right femur, initial encounter for closed fracture (principal); I48.20 Chronic atrial fibrillation, unspecified; R07.81 Pleurodynia; I10 Essential (primary) hypertension; J84.10 Pulmonary fibrosis, unspecified; D69.6 Thrombocytopenia, unspecified; K59.00 Constipation, unspecified; E11.42 Type 2 diabetes mellitus with diabetic polyneuropathy; S91.302A Unspecified open wound, left foot, initial encounter; S91.301A Unspecified open wound, right foot, initial encounter; W18.30XA Fall on same level, unspecified, initial encounter; Z20.822 Contact with and (suspected) exposure to COVID-19; Z86.79 Personal history of other diseases of the circulatory system; Z79.899 Other long term (current) drug therapy; Z79.01 Long term (current) use of anticoagulants; Z79.51 Long term (current) use of inhaled steroids; Z79.02 Long term (current) use of antithrombotics/antiplatelets; Z79.52 Long term (current) use of systemic steroids; Z79.4 Long term (current) use of insulin; Z79.2 Long term (current) use of antibiotics; Z96.642 Presence of left artificial hip joint; Z90.89 Acquired absence of other organs; Z98.890 Other specified postprocedural states; Z87.19 Personal history of other diseases of the digestive system
CPT/HCPCS: 36415; 71045; 73502; 80048; 80053; 80069; 82947; 83735; 83880; 84484; 85025; 85027; 85651; 86140; 93005; 93010; 93306; 94640; 94664; 94760; 96374; 97110; 97116; 97161; 97166; 97530; 97535; 99285-25; A9270; C1713; C1769; J0690; J1885; J2250; J2370; J2704; J2765; J3010; J3370; J3480; J7120; U0002

== ENCOUNTER 2023-02-18 15:43 | Emergency (ER) | payer OTHER ==
[~2023-02-18] VITALS: Ht 198.1 cm; Wt 115.7 kg
[~2023-02-18 15:43] MED LIST changes: +BASAGLAR K100 UNIT/6 SC; +CHLORHEXIDINE TOP; +HYDHCL25; +HYDPAM50 PO; +JARDIANCE25 MG; +SYNJARDY XR 121 EAC1 PO
[2023-02-18 15:54] VITALS: BP 136/95
== END 2023-02-18 18:12 | disposition home or self-care (01) ==
LOC: ER 15:43
DX: M79.89 Other specified soft tissue disorders (principal); E11.9 Type 2 diabetes mellitus without complications; I48.91 Unspecified atrial fibrillation; Z79.01 Long term (current) use of anticoagulants; Z79.84 Long term (current) use of oral hypoglycemic drugs
CPT/HCPCS: 99283

== ENCOUNTER → 2023-04-13 | Outpatient (CLI) | payer OTHER ==
[2023-04-13 18:30] LABS: BASOPHILS ABSOLUTE AUTO 0.03 K/mm3 (0.00-0.23); BASOPHILS PERCENT AUTO 0 % (0-2); EOSINOPHILS ABSOLUTE AUTO 0.11 K/mm3 (0.00-0.68); EOSINOPHILS PERCENT AUTO 2 % (0-6); Hematocrit 50.4 % (37.0-53.0); Hemoglobin 16.4 g/dL (13.5-17.5); IMMATURE GRAN ABSOLUTE AUTO 0.08 K/mm3 (0.00-0.10); IMMATURE GRAN PERCENT AUTO 1 % (0-1); LYMPHOCYTES ABSOLUTE AUTO 1.35 K/mm3 (0.84-5.20); LYMPHOCYTES PERCENT AUTO 19 % (21-46); MONOCYTES ABSOLUTE AUTO 0.56 K/mm3 (0.16-1.47); MONOCYTES PERCENT AUTO 8 % (4-13); Mean Corpuscular HGB 31.4 pg (26.0-34.0); Mean Corpuscular HGB Conc 32.5 g/dL (31.5-36.5); Mean Corpuscular Volume 97 fL (80-100); Mean Platelet Volume 10.8 fL (9.1-12.4); NEUTROPHILS ABSOLUTE AUTO 5.06 K/mm3 (1.96-9.15); NEUTROPHILS PERCENT AUTO 70 % (41-73); Platelet Count 152 K/mm3 (150-400); RDW Coefficient Variation 12.9 % (11.7-14.2); RDW Standard Deviation 46.5 fL (35.1-46.3); Red Blood Cell Count 5.22 M/mm3 (4.30-5.90); White Blood Cell Count 7.19 K/mm3 (4.00-11.30)
[2023-04-13 18:40] LABS: Percent Saturation 68.3 % (20.0-50.0)
== END | disposition home or self-care (01) ==
LOC: LAB SHORT 17:13 → LAB 17:13
PROVIDERS: Internal Medicine Hematology & Oncology
DX: E83.119 Hemochromatosis, unspecified (principal)
CPT/HCPCS: 82728; 83540; 83550; 85025

== ENCOUNTER → 2023-07-29 | Outpatient (CLI) | payer OTHER ==
[2023-07-29 16:22] LABS: BASOPHILS ABSOLUTE AUTO 0.03 K/mm3 (0.00-0.23); BASOPHILS PERCENT AUTO 0 % (0-2); EOSINOPHILS PERCENT AUTO 1 % (0-6); Hematocrit 48.2 % (37.0-53.0); Hemoglobin 15.7 g/dL (13.5-17.5); IMMATURE GRAN ABSOLUTE AUTO 0.09 K/mm3 (0.00-0.10); IMMATURE GRAN PERCENT AUTO 1 % (0-1); LYMPHOCYTES ABSOLUTE AUTO 1.61 K/mm3 (0.84-5.20); LYMPHOCYTES PERCENT AUTO 19 % (21-46); MONOCYTES ABSOLUTE AUTO 0.61 K/mm3 (0.16-1.47); MONOCYTES PERCENT AUTO 7 % (4-13); Mean Corpuscular HGB 31.3 pg (26.0-34.0); Mean Corpuscular HGB Conc 32.6 g/dL (31.5-36.5); Mean Corpuscular Volume 96 fL (80-100); Mean Platelet Volume 10.7 fL (9.1-12.4); NEUTROPHILS ABSOLUTE AUTO 5.85 K/mm3 (1.96-9.15); NEUTROPHILS PERCENT AUTO 71 % (41-73); Platelet Count 135 K/mm3 (150-400); RDW Coefficient Variation 13.7 % (11.7-14.2); RDW Standard Deviation 48.5 fL (35.1-46.3); Red Blood Cell Count 5.02 M/mm3 (4.30-5.90); White Blood Cell Count 8.29 K/mm3 (4.00-11.30)
[2023-07-29 17:25] LABS: Percent Saturation 84.7 % (20.0-50.0)
== END ==
LOC: LAB SHORT 11:37
PROVIDERS: Internal Medicine Hematology & Oncology
DX: E83.119 Hemochromatosis, unspecified (principal)
CPT/HCPCS: 82728; 83540; 83550; 85025

== ENCOUNTER 2023-10-06 15:26 | Emergency (ER) | payer OTHER ==
[~2023-10-06] VITALS: Ht 198.1 cm; Wt 117.9 kg
[2023-10-06] MEDS ORDERED: Acetaminophen 500 MG Tab PO ONE (16:35)
[2023-10-06] MEDS ORDERED: Metoclopramide HCl 5MG / ML 2ML Vial IV ONE (16:35)
[2023-10-06 16:45] VITALS: BP 132/88
== END 2023-10-06 17:07 | disposition home or self-care (01) ==
LOC: ER 15:26
DX: S09.90XA Unspecified injury of head, initial encounter (principal); S16.1XXA Strain of muscle, fascia and tendon at neck level, initial encounter; J32.0 Chronic maxillary sinusitis; E11.42 Type 2 diabetes mellitus with diabetic polyneuropathy; I48.91 Unspecified atrial fibrillation; Z79.01 Long term (current) use of anticoagulants; Z79.899 Other long term (current) drug therapy; Z79.51 Long term (current) use of inhaled steroids; Z79.84 Long term (current) use of oral hypoglycemic drugs; W01.0XXA Fall on same level from slipping, tripping and stumbling without subsequent striking against object, initial encounter
CPT/HCPCS: 70450; 72125; 96374; 99284-25; A9270; J2765

== ENCOUNTER 2023-11-15 19:53 | Emergency (ER) | payer OTHER ==
[~2023-11-15] VITALS: Ht 198.1 cm; Wt 113.4 kg
[2023-11-15 20:46] LABS: Hematocrit 51.4 % (37.0-53.0); Hemoglobin 17.3 g/dL (13.5-17.5); Mean Corpuscular HGB 30.8 pg (26.0-34.0); Mean Corpuscular HGB Conc 33.7 g/dL (31.5-36.5); Mean Corpuscular Volume 92 fL (80-100); Platelet Count 178 K/mm3 (150-400); RDW Coefficient Variation 13.3 % (11.7-14.2); RDW Standard Deviation 45.4 fL (35.1-46.3); Red Blood Cell Count 5.61 M/mm3 (4.30-5.90); White Blood Cell Count 13.81 K/mm3 (4.00-11.30)
[2023-11-15 21:15] LABS: Albumin, Blood 2.6 g/dL (3.4-5.0); Albumin/Globulin Ratio 0.7 (0.8-1.8); Bilirubin, Total 1.2 mg/dL (0.1-1.0); Bun/Creatinine Ratio 27.6 (12.0-20.0); Creatinine, Blood 0.98 mg/dL (0.60-1.20); Globulin, Blood 3.5 g/dL (2.2-4.0); Potassium, Blood 4.6 mmol/L (3.5-5.5); Total Protein, Blood 6.1 g/dL (6.4-8.2)
[2023-11-15 21:20] LABS: BAND PERCENT MAN 12 % (0-8); BASOPHILS PERCENT MAN 0 % (0-2); EOSINOPHILS PERCENT MAN 0 % (0-6); LYMPHOCYTES ABSOLUTE MAN 2.62 K/mm3 (0.84-5.20); LYMPHOCYTES PERCENT MAN 19 % (21-46); MONOCYTES ABSOLUTE MAN 1.51 K/mm3 (0.16-1.47); MONOCYTES PERCENT MAN 11 % (4-13); NEUTROPHILS ABSOLUTE MAN 9.66 K/mm3 (1.96-9.15); SEG NEUTROPHILS PERCENT MAN 58 % (41-73); TOTAL CELLS COUNTED 100
[2023-11-16] MEDS ORDERED: Metoclopramide HCl 5MG / ML 2ML Vial IV PRN (01:00)
[2023-11-16] MEDS ORDERED: Ondansetron HCl 2 MG / ML 2ML Vial IV ONE (01:00)
[2023-11-16] MEDS ORDERED: Ipratropium/Albuterol SulF 2.5-0.5MG/3 ML Amp INH ONE (01:05)
[2023-11-16] MEDS ORDERED: NS 1,000 ML IV SCH (01:05)
[2023-11-16 01:20] LABS: Magnesium, Blood 1.4 mg/dL (1.6-2.4)
[2023-11-16] MEDS ORDERED: Magnesium Sulf 2 GM/Water 50ML 50 ML IV ONE (02:40)
[2023-11-16 03:15] LABS: Influenza A, PCR NEGATIVE (NEGATIVE); Influenza B, PCR NEGATIVE (NEGATIVE); Resp Syncytial Virus, PCR NEGATIVE (NEGATIVE); SARS-Cov-2 (COVID-19) PCR, MMC NEGATIVE (NEGATIVE)
[2023-11-16 03:59] LABS: Adenovirus F 40/41 Not Detected (NOT DETECT); Astrovirus Not Detected (NOT DETECT); Campylobacter Sp Not Detected (NOT DETECT); Cryptosporidium Not Detected (NOT DETECT); Cyclospora Cayetanensis Not Detected (NOT DETECT); E. Coli O157 Not Detected (NOT DETECT); Entamoeba Histolytica Not Detected (NOT DETECT); Enteroaggregative E. coli-EAEC Not Detected (NOT DETECT); Enteropathogenic E. coli-EPEC Not Detected (NOT DETECT); Enterotoxigenic E. coli-ETEC Not Detected (NOT DETECT); Giardia Lamblia Not Detected (NOT DETECT); Norovirus GI/GII Not Detected (NOT DETECT); Plesiomonas Shigelloides Not Detected (NOT DETECT); Rotavirus A Not Detected (NOT DETECT); Salmonella Sp Not Detected (NOT DETECT); Sapovirus Not Detected (NOT DETECT); Shiga Toxin-prod E. coli-STEC Not Detected (NOT DETECT); Shigella/Enteroin E. coli-EIEC Not Detected (NOT DETECT); Vibrio Cholerae Not Detected (NOT DETECT); Vibrio Sp Not Detected (NOT DETECT); Yersinia Enterocolitica Not Detected (NOT DETECT)
[2023-11-16] MEDS ORDERED: ONDA4ODT MM (03:59)
[2023-11-16] MEDS ORDERED: PROMETHAZINE12.5 M1 PO (03:59)
[2023-11-16] MEDS ORDERED: PROM12.5S PR (03:59)
[2023-11-16] MEDS ORDERED: Ondansetron 4 MG SoluTab MM ONE (04:05)
[2023-11-16 05:05] VITALS: BP 126/77
== END 2023-11-16 05:21 | disposition home or self-care (01) ==
LOC: ER 19:53
PROVIDERS: Student in an Organized Health Care Education/Training Program
DX: R11.2 Nausea with vomiting, unspecified (principal); R19.7 Diarrhea, unspecified; E86.0 Dehydration; E11.622 Type 2 diabetes mellitus with other skin ulcer; J84.10 Pulmonary fibrosis, unspecified; L98.499 Non-pressure chronic ulcer of skin of other sites with unspecified severity; E83.42 Hypomagnesemia; E88.09 Other disorders of plasma-protein metabolism, not elsewhere classified; E11.65 Type 2 diabetes mellitus with hyperglycemia; Z79.899 Other long term (current) drug therapy; E11.40 Type 2 diabetes mellitus with diabetic neuropathy, unspecified; I48.91 Unspecified atrial fibrillation
CPT/HCPCS: 0241U; 71046; 80053; 83735; 83880; 85025; 87507; 93005; 93010; 94640; 94664; 96361; 96365; 96375; 99285-25; A9270; J2405; J2765; J3475; J7030

== ENCOUNTER 2024-04-30 16:22 | Emergency (ER) | payer OTHER ==
[~2024-04-30] VITALS: Ht 198.1 cm; Wt 111.1 kg
[~2024-04-30 16:22] MED LIST changes: +ONDA4ODT MM; +PROM12.5S PR; +PROMETHAZINE12.5 M1 PO
[2024-04-30 16:54] LABS: BASOPHILS ABSOLUTE AUTO 0.03 K/mm3 (0.00-0.23); BASOPHILS PERCENT AUTO 0 % (0-2); EOSINOPHILS ABSOLUTE AUTO 0.07 K/mm3 (0.00-0.68); EOSINOPHILS PERCENT AUTO 1 % (0-6); Hematocrit 44.9 % (37.0-53.0); IMMATURE GRAN ABSOLUTE AUTO 0.11 K/mm3 (0.00-0.10); IMMATURE GRAN PERCENT AUTO 1 % (0-1); LYMPHOCYTES ABSOLUTE AUTO 0.99 K/mm3 (0.84-5.20); LYMPHOCYTES PERCENT AUTO 9 % (21-46); MONOCYTES ABSOLUTE AUTO 1.07 K/mm3 (0.16-1.47); MONOCYTES PERCENT AUTO 9 % (4-13); Mean Corpuscular HGB 30.3 pg (26.0-34.0); Mean Corpuscular HGB Conc 33.4 g/dL (31.5-36.5); Mean Corpuscular Volume 91 fL (80-100); Mean Platelet Volume 9.2 fL (9.1-12.4); NEUTROPHILS ABSOLUTE AUTO 9.38 K/mm3 (1.96-9.15); NEUTROPHILS PERCENT AUTO 81 % (41-73); Platelet Count 233 K/mm3 (150-400); RDW Coefficient Variation 13.2 % (11.7-14.2); RDW Standard Deviation 43.6 fL (35.1-46.3); Red Blood Cell Count 4.95 M/mm3 (4.30-5.90); White Blood Cell Count 11.65 K/mm3 (4.00-11.30)
[2024-04-30] MEDS ORDERED: Morphine Sulfate 4 MG/1 ML Injection IV ONE ×3 (17:05→21:45)
[2024-04-30] MEDS ORDERED: Ondansetron HCl 2 MG / ML 2ML Vial IV ONE (17:15)
[2024-04-30 17:18] LABS: Alanine Aminotransfer (ALT/SGP 20 U/L (12-78); Albumin/Globulin Ratio 0.4 (0.8-1.8); Alk Phos 102 U/L (50-136); Anion Gap 13 mmol/L (3-11); Aspartate Aminotrans (AST/SGOT 29 U/L (12-37); Blood Urea Nitrogen 26 mg/dL (8-24); Bun/Creatinine Ratio 28.7 (12.0-20.0); CO2, Blood 27 mmol/L (21-32); Calcium, Blood 8.8 mg/dL (8.5-10.1); Chloride, Blood 101 mmol/L (98-108); Creatinine, Blood 0.91 mg/dL (0.60-1.20); Globulin, Blood 4.5 g/dL (2.2-4.0); Glomerular Filtration Rate 89 (60-); Glucose, Blood 210 mg/dL (70-99); Potassium, Blood 4.3 mmol/L (3.5-5.5); Sodium, Blood 137 mmol/L (136-145); Total Protein, Blood 6.5 g/dL (6.4-8.2)
[2024-04-30 17:19] LABS: C-Reactive Protein, High Sens. >190.000 mg/dL (0.000-3.000)
[2024-04-30] MEDS ORDERED: CefTRIAXone Sodium 2,000 MG in NS 100 ML IV ONE (20:50)
[2024-04-30] MEDS ORDERED: Vancomycin HCL 2,000 MG in NS 520 ML IV ONE (20:50)
[2024-04-30 21:04] LABS: Body Fluid Crystals NEG (NEGATIVE)
[2024-04-30 21:51] LABS: WBC Count, Synovial Fluid 20444 /mm3 (0-180)
[2024-04-30 21:52] LABS: BODY FLUID RBC 0.308 M/mm3 (0-0); RBC Count, Synovial Fluid 308000 /mm3 (0-0)
[2024-04-30 21:53] LABS: Monocytes/Macrophages, Synovia 1 % (0-65); Neutrophils, Synovial Fluid 99 % (0-24)
[2024-04-30 21:54] LABS: Appearance, Synovial Fluid Turbid (Clear); Color, Synovial Fluid Red (None-P Yel)
[2024-05-01] MEDS ORDERED: NS 1,000 ML IV SCH (08:10)
[2024-05-01] MEDS ORDERED: Doxycycline Hyclate 100 MG TAB PO ONE (09:55)
[2024-05-01 10:01] VITALS: BP 132/83
[2024-05-01] MEDS ORDERED: OXYC5 PO (10:02)
[2024-05-01] MEDS ORDERED: DOXY100 PO (10:20)
== END 2024-05-01 11:18 | disposition home or self-care (01) ==
LOC: ER 16:22
PROVIDERS: Emergency Medicine
DX: L03.116 Cellulitis of left lower limb (principal); E11.42 Type 2 diabetes mellitus with diabetic polyneuropathy; I48.91 Unspecified atrial fibrillation
CPT/HCPCS: 20610; 36415; 73502; 80053; 82947; 83605; 85025; 85651; 86141; 87040; 87070; 87205; 89051; 89060; 96365-59; 96366-59; 96367-59; 96375-59; 96376-59; 99284-25; A9270; J0696; J2270; J2405; J3370; J7030; J7040

== ENCOUNTER 2024-05-03 16:29 | Emergency (ER) | payer OTHER ==
[~2024-05-03] VITALS: Ht 198.1 cm; Wt 113.4 kg
[~2024-05-03 16:29] MED LIST changes: +DOXY100 PO; +OXYC5 PO
[2024-05-03 17:21] LABS: BASOPHILS ABSOLUTE AUTO 0.02 K/mm3 (0.00-0.23); BASOPHILS PERCENT AUTO 0 % (0-2); EOSINOPHILS ABSOLUTE AUTO 0.05 K/mm3 (0.00-0.68); EOSINOPHILS PERCENT AUTO 1 % (0-6); Hematocrit 42.4 % (37.0-53.0); Hemoglobin 13.9 g/dL (13.5-17.5); IMMATURE GRAN ABSOLUTE AUTO 0.11 K/mm3 (0.00-0.10); IMMATURE GRAN PERCENT AUTO 1 % (0-1); LYMPHOCYTES ABSOLUTE AUTO 0.64 K/mm3 (0.84-5.20); LYMPHOCYTES PERCENT AUTO 8 % (21-46); MONOCYTES PERCENT AUTO 10 % (4-13); Mean Corpuscular HGB Conc 32.8 g/dL (31.5-36.5); Mean Corpuscular Volume 91 fL (80-100); Mean Platelet Volume 9.1 fL (9.1-12.4); NEUTROPHILS ABSOLUTE AUTO 6.84 K/mm3 (1.96-9.15); NEUTROPHILS PERCENT AUTO 81 % (41-73); Platelet Count 261 K/mm3 (150-400); RDW Coefficient Variation 13.2 % (11.7-14.2); RDW Standard Deviation 44.5 fL (35.1-46.3); Red Blood Cell Count 4.64 M/mm3 (4.30-5.90); White Blood Cell Count 8.46 K/mm3 (4.00-11.30)
[2024-05-03 17:22] LABS: C-REACTIVE PROTEIN, EXT RANGE 15.7 mg/dL (0.000-0.300)
[2024-05-03 17:25] LABS: Albumin/Globulin Ratio 0.5 (0.8-1.8); Bilirubin, Total 0.9 mg/dL (0.1-1.0); Bun/Creatinine Ratio 18.5 (12.0-20.0); Calcium, Blood 8.3 mg/dL (8.5-10.1); Creatinine, Blood 0.81 mg/dL (0.60-1.20); Globulin, Blood 4.2 g/dL (2.2-4.0); Potassium, Blood 3.8 mmol/L (3.5-5.5); Total Protein, Blood 6.2 g/dL (6.4-8.2)
[2024-05-03] MEDS ORDERED: Morphine Sulfate 10 MG/ML 1MLSYR IV ONE (17:35)
[2024-05-03] MEDS ORDERED: NS 1,000 ML IV SCH (17:35)
[2024-05-03] MEDS ORDERED: Piperacillin/Tazobactam Sod 3.375 GM in NS 100 ML IV ONE (17:40)
[2024-05-03] MEDS ORDERED: Vancomycin HCL 1,000 MG in NS 250 ML IV ONE (17:55)
[2024-05-03 18:35] VITALS: BP 129/69
[2024-05-03] MEDS ORDERED: CEPH500 PO (19:55)
== END 2024-05-03 20:22 | disposition home or self-care (01) ==
LOC: ER 16:29
PROVIDERS: Student in an Organized Health Care Education/Training Program
DX: S70.02XD Contusion of left hip, subsequent encounter (principal); L03.116 Cellulitis of left lower limb; L03.90 Cellulitis, unspecified; E11.42 Type 2 diabetes mellitus with diabetic polyneuropathy; I10 Essential (primary) hypertension; I48.91 Unspecified atrial fibrillation; X58.XXXD Exposure to other specified factors, subsequent encounter; Z79.899 Other long term (current) drug therapy
CPT/HCPCS: 80053; 83605; 85025; 85651; 86140; 96365; 96367; 96375; 99283-25; J2270; J2543; J3370; J7030; J7050

== ENCOUNTER 2024-05-04 09:51 | Emergency (ER) | payer OTHER ==
[~2024-05-04] VITALS: Ht 198.1 cm; Wt 113.4 kg
[2024-05-04] MEDS ORDERED: HYDROmorphone HCl/Pf 1MG SYR IV ONE ×2 (11:15→14:20)
[2024-05-04] MEDS ORDERED: Ondansetron HCl 2 MG / ML 2ML Vial IV ONE (11:20)
[2024-05-04 11:40] LABS: BASOPHILS ABSOLUTE AUTO 0.03 K/mm3 (0.00-0.23); BASOPHILS PERCENT AUTO 0 % (0-2); EOSINOPHILS ABSOLUTE AUTO 0.07 K/mm3 (0.00-0.68); EOSINOPHILS PERCENT AUTO 1 % (0-6); Hematocrit 42.6 % (37.0-53.0); Hemoglobin 13.9 g/dL (13.5-17.5); IMMATURE GRAN ABSOLUTE AUTO 0.13 K/mm3 (0.00-0.10); IMMATURE GRAN PERCENT AUTO 2 % (0-1); LYMPHOCYTES ABSOLUTE AUTO 0.53 K/mm3 (0.84-5.20); LYMPHOCYTES PERCENT AUTO 6 % (21-46); MONOCYTES ABSOLUTE AUTO 0.72 K/mm3 (0.16-1.47); MONOCYTES PERCENT AUTO 8 % (4-13); Mean Corpuscular HGB 30.2 pg (26.0-34.0); Mean Corpuscular HGB Conc 32.6 g/dL (31.5-36.5); Mean Corpuscular Volume 92 fL (80-100); NEUTROPHILS ABSOLUTE AUTO 7.13 K/mm3 (1.96-9.15); NEUTROPHILS PERCENT AUTO 83 % (41-73); Platelet Count 237 K/mm3 (150-400); RDW Coefficient Variation 13.4 % (11.7-14.2); RDW Standard Deviation 45.5 fL (35.1-46.3); Red Blood Cell Count 4.61 M/mm3 (4.30-5.90); White Blood Cell Count 8.61 K/mm3 (4.00-11.30)
[2024-05-04 11:56] LABS: C-REACTIVE PROTEIN, EXT RANGE 16.3 mg/dL (0.000-0.300)
[2024-05-04 11:59] LABS: Albumin/Globulin Ratio 0.5 (0.8-1.8); Bilirubin, Total 0.8 mg/dL (0.1-1.0); Calcium, Blood 8.3 mg/dL (8.5-10.1); Creatinine, Blood 0.86 mg/dL (0.60-1.20); Globulin, Blood 4.1 g/dL (2.2-4.0); Potassium, Blood 4.2 mmol/L (3.5-5.5); Total Protein, Blood 6.1 g/dL (6.4-8.2)
[2024-05-04 14:15] VITALS: BP 149/89
[2024-05-04] MEDS ORDERED: Cephalexin Monohydrate 500 MG Cap PO ONE (15:55)
[2024-05-04 16:36] LABS: BODY FLUID RBC 0.106 M/mm3 (0-0)
[2024-05-04 16:45] LABS: RBC Count, Synovial Fluid 106000 /mm3 (0-0); WBC Count, Synovial Fluid 4410 /mm3 (0-180)
[2024-05-04 17:18] LABS: Appearance, Synovial Fluid Bloody (Clear); Color, Synovial Fluid Red (None-P Yel); Lymphs, Synovial Fluid 1 % (0-15); Monocytes/Macrophages, Synovia 5 % (0-65); Neutrophils, Synovial Fluid 94 % (0-24)
== END 2024-05-04 17:35 | disposition home or self-care (01) ==
LOC: ER 09:51
PROVIDERS: Physician Assistant
DX: M96.843 Postprocedural seroma of a musculoskeletal structure following other procedure (principal); L03.116 Cellulitis of left lower limb; E11.42 Type 2 diabetes mellitus with diabetic polyneuropathy; I10 Essential (primary) hypertension; I48.91 Unspecified atrial fibrillation; Z79.899 Other long term (current) drug therapy
CPT/HCPCS: 10030; 80053; 85025; 85651; 86140; 89051; 96374; 96375; 96376; 99284-25; A9270; J1170; J2405

== ENCOUNTER 2024-06-07 10:25 | Emergency (ER) | payer OTHER ==
[~2024-06-07] VITALS: Ht 190.5 cm; Wt 77.1 kg
[2024-06-07 11:13] LABS: BASOPHILS ABSOLUTE AUTO 0.01 K/mm3 (0.00-0.23); BASOPHILS PERCENT AUTO 0 % (0-2); EOSINOPHILS ABSOLUTE AUTO 0.22 K/mm3 (0.00-0.68); EOSINOPHILS PERCENT AUTO 3 % (0-6); Hematocrit 42.1 % (37.0-53.0); Hemoglobin 13.5 g/dL (13.5-17.5); IMMATURE GRAN ABSOLUTE AUTO 0.06 K/mm3 (0.00-0.10); IMMATURE GRAN PERCENT AUTO 1 % (0-1); LYMPHOCYTES ABSOLUTE AUTO 1.34 K/mm3 (0.84-5.20); LYMPHOCYTES PERCENT AUTO 17 % (21-46); MONOCYTES ABSOLUTE AUTO 0.78 K/mm3 (0.16-1.47); MONOCYTES PERCENT AUTO 10 % (4-13); Mean Corpuscular HGB 29.6 pg (26.0-34.0); Mean Corpuscular HGB Conc 32.1 g/dL (31.5-36.5); Mean Corpuscular Volume 92 fL (80-100); Mean Platelet Volume 9.9 fL (9.1-12.4); NEUTROPHILS ABSOLUTE AUTO 5.66 K/mm3 (1.96-9.15); NEUTROPHILS PERCENT AUTO 70 % (41-73); Platelet Count 109 K/mm3 (150-400); RDW Coefficient Variation 15.2 % (11.7-14.2); RDW Standard Deviation 52.2 fL (35.1-46.3); Red Blood Cell Count 4.56 M/mm3 (4.30-5.90); White Blood Cell Count 8.07 K/mm3 (4.00-11.30)
[2024-06-07] MEDS ORDERED: Lactated Ringer's 1,000 ML IV SCH (11:25)
[2024-06-07 11:27] LABS: Albumin, Blood 2.4 g/dL (3.4-5.0); Albumin/Globulin Ratio 0.5 (0.8-1.8); Bilirubin, Total 0.8 mg/dL (0.1-1.0); Bun/Creatinine Ratio 27.1 (12.0-20.0); Creatinine, Blood 1.4 mg/dL (0.60-1.20); Globulin, Blood 4.7 g/dL (2.2-4.0); Potassium, Blood 4.8 mmol/L (3.5-5.5); Total Protein, Blood 7.1 g/dL (6.4-8.2)
[2024-06-07] MEDS ORDERED: PROSOURCE TF FR PO (11:47)
[2024-06-07] MEDS ORDERED: ACETAMINOPHEN500 M2 PO (11:49)
[2024-06-07] MEDS ORDERED: Ascorbic Acid500 M2 PO (11:50)
[2024-06-07] MEDS ORDERED: VITAMIN D350 MC3 PO (11:51)
[2024-06-07] MEDS ORDERED: CUBICIN RF500 M1 IV (11:52)
[2024-06-07] MEDS ORDERED: BISA10S PR (11:53)
[2024-06-07] MEDS ORDERED: FAMO20 PO (11:54)
[2024-06-07] MEDS ORDERED: FISH OIL 1,0001 EA10 PO (11:55)
[2024-06-07] MEDS ORDERED: FLONASE SENSIM5.9 M1 NS (11:56)
[2024-06-07] MEDS ORDERED: Atarax10 MG PO (11:57)
[2024-06-07] MEDS ORDERED: BASAGLAR K100 UNIT/3 SC (11:58)
[2024-06-07] MEDS ORDERED: MIRALAX1714 PO (11:59)
[2024-06-07] MEDS ORDERED: LUBRICANT EYE1 EAC1 (12:00)
[2024-06-07] MEDS ORDERED: CALCIUM CARBON500 M1 PO (12:01)
[2024-06-07] MEDS ORDERED: MYCOBUTIN PO (12:02)
[2024-06-07] MEDS ORDERED: SENNA LAXATIVE8.6 MG PO (12:03)
[2024-06-07] MEDS ORDERED: [UNRECOGNIZED DRUG - OTHER] (12:04)
[2024-06-07 14:39] LABS: Source, Urine Clean Catch
[2024-06-07 14:43] LABS: Appearance, Urine Clear (Clear); Bilirubin, Urine Neg (Neg); Blood, Urine 3+ (Neg); Color, Urine Yellow (P-Yellow); Glucose Qualitative, Urine 4+ (Neg); Ketones, Urine Neg (Neg); Leukocyte Esterase, Urine Neg (Neg); Nitrite, Urine Neg (Neg); Protein, Urine 2+ (Neg); Specific Gravity, Urine 1.025 (1.003-1.022); Urobilinogen, Urine NORM (Normal)
[2024-06-07 15:03] LABS: Amorphous Light (0-Heavy); Bacteria Few /hpf; Red Blood Cells, Urine 0-2 /hpf (0-2); Squamous Epithelial Cells Rare /hpf (Few); White Blood Cells, Urine 0-2 /hpf (0-5)
[2024-06-07 17:30] VITALS: BP 148/78
== END 2024-06-07 17:38 | disposition home or self-care (01) ==
LOC: ER 10:25
PROVIDERS: Family Medicine
DX: U07.1 COVID-19 (principal); E11.9 Type 2 diabetes mellitus without complications; I48.91 Unspecified atrial fibrillation; Z79.899 Other long term (current) drug therapy
CPT/HCPCS: 71046; 80053; 81001; 83605; 85025; 87040; 93005; 93010; 96360; 99284-25; J7120

== ENCOUNTER 2024-06-15 18:05 | Emergency (ER) | payer OTHER ==
[~2024-06-15] VITALS: Ht 198.1 cm; Wt 113.4 kg
[~2024-06-15 18:05] MED LIST changes: +ACETAMINOPHEN500 M2 PO; +Ascorbic Acid500 M2 PO; +BASAGLAR K100 UNIT/3 SC; +BISA10S PR; +CALCIUM CARBON500 M1 PO; +CUBICIN RF500 M1 IV; +FAMO20 PO; +FISH OIL 1,0001 EA10 PO; +FLONASE SENSIM5.9 M1 NS; +LUBRICANT EYE1 EAC1; +MIRALAX1714 PO; +MYCOBUTIN PO; +PROSOURCE TF FR PO; +SENNA LAXATIVE8.6 MG PO; +VITAMIN D350 MC3 PO; +[UNRECOGNIZED DRUG - OTHER]
[2024-06-15 19:37] LABS: BASOPHILS ABSOLUTE AUTO 0.02 K/mm3 (0.00-0.23); BASOPHILS PERCENT AUTO 0 % (0-2); EOSINOPHILS ABSOLUTE AUTO 0.12 K/mm3 (0.00-0.68); EOSINOPHILS PERCENT AUTO 2 % (0-6); Hematocrit 38.3 % (37.0-53.0); Hemoglobin 12.4 g/dL (13.5-17.5); IMMATURE GRAN PERCENT AUTO 2 % (0-1); LYMPHOCYTES ABSOLUTE AUTO 1.49 K/mm3 (0.84-5.20); LYMPHOCYTES PERCENT AUTO 24 % (21-46); MONOCYTES ABSOLUTE AUTO 0.69 K/mm3 (0.16-1.47); MONOCYTES PERCENT AUTO 11 % (4-13); Mean Corpuscular HGB 29.4 pg (26.0-34.0); Mean Corpuscular HGB Conc 32.4 g/dL (31.5-36.5); Mean Corpuscular Volume 91 fL (80-100); Mean Platelet Volume 9.4 fL (9.1-12.4); NEUTROPHILS ABSOLUTE AUTO 3.72 K/mm3 (1.96-9.15); NEUTROPHILS PERCENT AUTO 61 % (41-73); Platelet Count 288 K/mm3 (150-400); RDW Coefficient Variation 14.2 % (11.7-14.2); RDW Standard Deviation 47.2 fL (35.1-46.3); Red Blood Cell Count 4.22 M/mm3 (4.30-5.90); White Blood Cell Count 6.14 K/mm3 (4.00-11.30)
[2024-06-15 20:02] LABS: Albumin, Blood 1.9 g/dL (3.4-5.0); Albumin/Globulin Ratio 0.4 (0.8-1.8); Bilirubin, Total 0.4 mg/dL (0.1-1.0); Calcium, Blood 9.2 mg/dL (8.5-10.1); Creatinine, Blood 1.05 mg/dL (0.60-1.20); Globulin, Blood 4.6 g/dL (2.2-4.0); Potassium, Blood 4.7 mmol/L (3.5-5.5); Total Protein, Blood 6.5 g/dL (6.4-8.2)
[2024-06-15 22:30] VITALS: BP 140/67
== END 2024-06-15 22:35 | disposition home or self-care (01) ==
LOC: ER 18:05
PROVIDERS: Emergency Medicine
DX: Z48.03 Encounter for change or removal of drains (principal); I10 Essential (primary) hypertension; I48.91 Unspecified atrial fibrillation; E11.42 Type 2 diabetes mellitus with diabetic polyneuropathy
CPT/HCPCS: 80053; 85025; 99284

== ENCOUNTER → 2024-11-02 | Outpatient (CLI) | payer OTHER ==
[2024-11-02 15:56] LABS: BASOPHILS ABSOLUTE AUTO 0.03 K/mm3 (0.00-0.23); BASOPHILS PERCENT AUTO 0 % (0-2); EOSINOPHILS ABSOLUTE AUTO 0.13 K/mm3 (0.00-0.68); EOSINOPHILS PERCENT AUTO 2 % (0-6); Hematocrit 46.6 % (37.0-53.0); Hemoglobin 15.1 g/dL (13.5-17.5); IMMATURE GRAN ABSOLUTE AUTO 0.09 K/mm3 (0.00-0.10); IMMATURE GRAN PERCENT AUTO 1 % (0-1); LYMPHOCYTES ABSOLUTE AUTO 1.17 K/mm3 (0.84-5.20); LYMPHOCYTES PERCENT AUTO 17 % (21-46); MONOCYTES ABSOLUTE AUTO 0.57 K/mm3 (0.16-1.47); MONOCYTES PERCENT AUTO 8 % (4-13); Mean Corpuscular HGB Conc 32.4 g/dL (31.5-36.5); Mean Corpuscular Volume 93 fL (80-100); Mean Platelet Volume 9.9 fL (9.1-12.4); NEUTROPHILS PERCENT AUTO 71 % (41-73); Platelet Count 137 K/mm3 (150-400); RDW Coefficient Variation 19.4 % (11.7-14.2); RDW Standard Deviation 65.2 fL (35.1-46.3); Red Blood Cell Count 5.04 M/mm3 (4.30-5.90); White Blood Cell Count 6.89 K/mm3 (4.00-11.30)
[2024-11-02 17:31] LABS: Percent Saturation 85.8 % (20.0-50.0)
== END ==
LOC: LAB 14:14 → LAB SHORT 14:14
PROVIDERS: Internal Medicine Hematology & Oncology
DX: E83.119 Hemochromatosis, unspecified (principal)
CPT/HCPCS: 82728; 83540; 83550; 85025

== ENCOUNTER → 2025-03-09 | Outpatient (CLI) | payer OTHER ==
[2025-03-09 14:46] LABS: BASOPHILS ABSOLUTE AUTO 0.02 K/mm3 (0.00-0.23); BASOPHILS PERCENT AUTO 0 % (0-2); EOSINOPHILS ABSOLUTE AUTO 0.13 K/mm3 (0.00-0.68); EOSINOPHILS PERCENT AUTO 2 % (0-6); Hematocrit 41.8 % (37.0-53.0); Hemoglobin 13.4 g/dL (13.5-17.5); IMMATURE GRAN ABSOLUTE AUTO 0.05 K/mm3 (0.00-0.10); IMMATURE GRAN PERCENT AUTO 1 % (0-1); LYMPHOCYTES ABSOLUTE AUTO 1.01 K/mm3 (0.84-5.20); LYMPHOCYTES PERCENT AUTO 17 % (21-46); MONOCYTES ABSOLUTE AUTO 0.50 K/mm3 (0.16-1.47); MONOCYTES PERCENT AUTO 9 % (4-13); Mean Corpuscular HGB Conc 32.1 g/dL (31.5-36.5); Mean Corpuscular Volume 98 fL (80-100); NEUTROPHILS ABSOLUTE AUTO 4.13 K/mm3 (1.96-9.15); NEUTROPHILS PERCENT AUTO 71 % (41-73); NRBC ABSOLUTE 0.00 K/mm3 (0.00-0.02); NRBC Auto 0.0 /100 WBC (0.0-0.2); Platelet Count 116 K/mm3 (150-400); RDW Coefficient Variation 14.3 % (11.7-14.2); RDW Standard Deviation 50.9 fL (35.1-46.3)
[2025-03-09 20:27] LABS: Alanine Aminotransfer (ALT/SGP 26.0 U/L (12-78); Albumin, Blood 2.0 g/dL (3.4-5.0); Albumin/Globulin Ratio 0.7 (0.8-1.8); Anion Gap 8.0 mmol/L (3-11); Aspartate Aminotrans (AST/SGOT 40.0 U/L (12-37); Bilirubin, Direct 0.1 mg/dL (0.0-0.3); Bilirubin, Indirect 0.3 mg/dL (0.1-0.7); Bilirubin, Total 0.4 mg/dL (0.1-1.0); Blood Urea Nitrogen 21.0 mg/dL (8-24); CO2, Blood 28.0 mmol/L (21-32); Calcium, Blood 8.2 mg/dL (8.5-10.1); Chloride, Blood 108.0 mmol/L (98-108); Creatinine, Blood 0.92 mg/dL (0.60-1.20); Ferritin, Serum 29.0 ng/mL (26-388); Globulin, Blood 2.7 g/dL (2.2-4.0); Glucose, Blood 172.0 mg/dL (70-99); Potassium, Blood 3.9 mmol/L (3.5-5.5); Sodium, Blood 140.0 mmol/L (136-145); Total Iron Binding Capacity 175.0 ug/dL (250-450); Total Protein, Blood 4.7 g/dL (6.4-8.2)
== END ==
LOC: LAB SHORT 13:18 → LAB 13:18
PROVIDERS: Internal Medicine Hematology & Oncology
DX: E83.119 Hemochromatosis, unspecified (principal)
CPT/HCPCS: 80053; 82248; 82728; 83540; 83550; 85025

== ENCOUNTER → 2025-04-11 | Outpatient (CLI) | payer OTHER ==
[2025-04-11 15:42] LABS: BASOPHILS ABSOLUTE AUTO 0.02 K/mm3 (0.00-0.23); BASOPHILS PERCENT AUTO 0 % (0-2); EOSINOPHILS ABSOLUTE AUTO 0.08 K/mm3 (0.00-0.68); EOSINOPHILS PERCENT AUTO 1 % (0-6); Hematocrit 43.2 % (37.0-53.0); Hemoglobin 13.9 g/dL (13.5-17.5); IMMATURE GRAN ABSOLUTE AUTO 0.09 K/mm3 (0.00-0.10); IMMATURE GRAN PERCENT AUTO 1 % (0-1); LYMPHOCYTES ABSOLUTE AUTO 0.97 K/mm3 (0.84-5.20); LYMPHOCYTES PERCENT AUTO 14 % (21-46); MONOCYTES ABSOLUTE AUTO 0.53 K/mm3 (0.16-1.47); MONOCYTES PERCENT AUTO 8 % (4-13); Mean Corpuscular HGB Conc 32.2 g/dL (31.5-36.5); Mean Corpuscular Volume 95 fL (80-100); NEUTROPHILS ABSOLUTE AUTO 5.35 K/mm3 (1.96-9.15); NEUTROPHILS PERCENT AUTO 76 % (41-73); NRBC ABSOLUTE 0.00 K/mm3 (0.00-0.02); NRBC Auto 0.0 /100 WBC (0.0-0.2); Platelet Count 157 K/mm3 (150-400); RDW Coefficient Variation 13.5 % (11.7-14.2); RDW Standard Deviation 47.1 fL (35.1-46.3)
[2025-04-11 17:22] LABS: Ferritin, Serum 28.0 ng/mL (26-388); Total Iron Binding Capacity 180.0 ug/dL (250-450)
== END ==
LOC: LAB 14:02 → LAB SHORT 14:02
PROVIDERS: Internal Medicine Hematology & Oncology
DX: E83.119 Hemochromatosis, unspecified (principal)
CPT/HCPCS: 82728; 83540; 83550; 85025

== ENCOUNTER 2025-05-11 13:02 | Emergency (ER) | payer OTHER ==
[~2025-05-11] VITALS: Ht 198.1 cm; Wt 99.8 kg
[2025-05-11 13:39] LABS: BASOPHILS ABSOLUTE AUTO 0.03 K/mm3 (0.00-0.23); BASOPHILS PERCENT AUTO 0 % (0-2); EOSINOPHILS ABSOLUTE AUTO 0.07 K/mm3 (0.00-0.68); EOSINOPHILS PERCENT AUTO 1 % (0-6); Hematocrit 43.7 % (37.0-53.0); Hemoglobin 14.4 g/dL (13.5-17.5); IMMATURE GRAN ABSOLUTE AUTO 0.10 K/mm3 (0.00-0.10); IMMATURE GRAN PERCENT AUTO 1 % (0-1); LYMPHOCYTES ABSOLUTE AUTO 1.25 K/mm3 (0.84-5.20); LYMPHOCYTES PERCENT AUTO 15 % (21-46); MONOCYTES ABSOLUTE AUTO 0.62 K/mm3 (0.16-1.47); MONOCYTES PERCENT AUTO 7 % (4-13); Mean Corpuscular HGB Conc 33.0 g/dL (31.5-36.5); Mean Corpuscular Volume 93 fL (80-100); NEUTROPHILS ABSOLUTE AUTO 6.49 K/mm3 (1.96-9.15); NEUTROPHILS PERCENT AUTO 76 % (41-73); NRBC ABSOLUTE 0.00 K/mm3 (0.00-0.02); NRBC Auto 0.0 /100 WBC (0.0-0.2); Platelet Count 137 K/mm3 (150-400); RDW Coefficient Variation 14.3 % (11.7-14.2); RDW Standard Deviation 48.8 fL (35.1-46.3)
[2025-05-11 14:00] LABS: Alanine Aminotransfer (ALT/SGP 31.0 U/L (12-78); Albumin, Blood 2.2 g/dL (3.4-5.0); Albumin/Globulin Ratio 0.7 (0.8-1.8); Anion Gap 9.0 mmol/L (3-11); Aspartate Aminotrans (AST/SGOT 52.0 U/L (12-37); Bilirubin, Total 0.3 mg/dL (0.1-1.0); Blood Urea Nitrogen 30.0 mg/dL (8-24); CO2, Blood 28.0 mmol/L (21-32); Calcium, Blood 7.6 mg/dL (8.5-10.1); Chloride, Blood 106.0 mmol/L (98-108); Creatinine, Blood 1.25 mg/dL (0.60-1.20); Globulin, Blood 3.1 g/dL (2.2-4.0); Glucose, Blood 176.0 mg/dL (70-99); Potassium, Blood 3.9 mmol/L (3.5-5.5); Sodium, Blood 139.0 mmol/L (136-145); Total Protein, Blood 5.3 g/dL (6.4-8.2)
[2025-05-11 14:25] LABS: Influenza A, PCR NEGATIVE (NEGATIVE); Influenza B, PCR NEGATIVE (NEGATIVE); Resp Syncytial Virus, PCR NEGATIVE (NEGATIVE); SARS-Cov-2 (COVID-19) PCR, MMC NEGATIVE (NEGATIVE)
[2025-05-11 16:45] VITALS: BP 98/75
== END 2025-05-11 17:00 | disposition home or self-care (01) ==
LOC: ER 13:02
PROVIDERS: Emergency Medicine
DX: R06.02 Shortness of breath (principal); I48.91 Unspecified atrial fibrillation; I10 Essential (primary) hypertension; E11.40 Type 2 diabetes mellitus with diabetic neuropathy, unspecified; Z79.2 Long term (current) use of antibiotics; Z79.899 Other long term (current) drug therapy
CPT/HCPCS: 71045; 80053; 83880; 84484; 85025; 87637; 93005; 93010; 99285-25

== ENCOUNTER → 2025-06-15 | Outpatient (CLI) | payer OTHER ==
[2025-06-15 14:17] LABS: BASOPHILS ABSOLUTE AUTO 0.03 K/mm3 (0.00-0.23); BASOPHILS PERCENT AUTO 0 % (0-2); EOSINOPHILS ABSOLUTE AUTO 0.12 K/mm3 (0.00-0.68); EOSINOPHILS PERCENT AUTO 2 % (0-6); Hematocrit 46.4 % (37.0-53.0); Hemoglobin 15.2 g/dL (13.5-17.5); IMMATURE GRAN ABSOLUTE AUTO 0.04 K/mm3 (0.00-0.10); IMMATURE GRAN PERCENT AUTO 1 % (0-1); LYMPHOCYTES ABSOLUTE AUTO 1.29 K/mm3 (0.84-5.20); LYMPHOCYTES PERCENT AUTO 18 % (21-46); MONOCYTES ABSOLUTE AUTO 0.62 K/mm3 (0.16-1.47); MONOCYTES PERCENT AUTO 9 % (4-13); Mean Corpuscular HGB Conc 32.8 g/dL (31.5-36.5); Mean Corpuscular Volume 93 fL (80-100); NEUTROPHILS ABSOLUTE AUTO 5.10 K/mm3 (1.96-9.15); NEUTROPHILS PERCENT AUTO 71 % (41-73); NRBC ABSOLUTE 0.00 K/mm3 (0.00-0.02); NRBC Auto 0.0 /100 WBC (0.0-0.2); Platelet Count 144 K/mm3 (150-400); RDW Coefficient Variation 14.9 % (11.7-14.2); RDW Standard Deviation 50.4 fL (35.1-46.3)
[2025-06-15 14:38] LABS: Ferritin, Serum 48.0 ng/mL (26-388); Total Iron Binding Capacity 182.0 ug/dL (250-450)
== END ==
LOC: LAB 13:18 → LAB SHORT 13:18
PROVIDERS: Internal Medicine Hematology & Oncology
DX: E83.119 Hemochromatosis, unspecified (principal)
CPT/HCPCS: 82728; 83540; 83550; 85025

== ENCOUNTER → 2025-07-04 | Outpatient (CLI) | payer OTHER ==
[2025-07-04 16:36] LABS: BASOPHILS ABSOLUTE AUTO 0.02 K/mm3 (0.00-0.23); BASOPHILS PERCENT AUTO 0 % (0-2); EOSINOPHILS ABSOLUTE AUTO 0.07 K/mm3 (0.00-0.68); EOSINOPHILS PERCENT AUTO 1 % (0-6); Hematocrit 45.6 % (37.0-53.0); Hemoglobin 14.7 g/dL (13.5-17.5); IMMATURE GRAN ABSOLUTE AUTO 0.05 K/mm3 (0.00-0.10); IMMATURE GRAN PERCENT AUTO 1 % (0-1); LYMPHOCYTES ABSOLUTE AUTO 1.27 K/mm3 (0.84-5.20); LYMPHOCYTES PERCENT AUTO 15 % (21-46); MONOCYTES ABSOLUTE AUTO 0.60 K/mm3 (0.16-1.47); MONOCYTES PERCENT AUTO 7 % (4-13); Mean Corpuscular HGB Conc 32.2 g/dL (31.5-36.5); Mean Corpuscular Volume 92 fL (80-100); NEUTROPHILS ABSOLUTE AUTO 6.42 K/mm3 (1.96-9.15); NEUTROPHILS PERCENT AUTO 76 % (41-73); NRBC ABSOLUTE 0.00 K/mm3 (0.00-0.02); NRBC Auto 0.0 /100 WBC (0.0-0.2); Platelet Count 120 K/mm3 (150-400); RDW Coefficient Variation 14.6 % (11.7-14.2); RDW Standard Deviation 50.0 fL (35.1-46.3)
[2025-07-04 20:52] LABS: Alanine Aminotransfer (ALT/SGP 36.0 U/L (12-78); Albumin, Blood 2.1 g/dL (3.4-5.0); Albumin/Globulin Ratio 0.7 (0.8-1.8); Anion Gap 9.0 mmol/L (3-11); Aspartate Aminotrans (AST/SGOT 56.0 U/L (12-37); Bilirubin, Total 0.7 mg/dL (0.1-1.0); Blood Urea Nitrogen 33.0 mg/dL (8-24); CO2, Blood 29.0 mmol/L (21-32); Calcium, Blood 8.0 mg/dL (8.5-10.1); Chloride, Blood 108.0 mmol/L (98-108); Creatinine, Blood 1.14 mg/dL (0.60-1.20); Ferritin, Serum 78.0 ng/mL (26-388); Globulin, Blood 2.9 g/dL (2.2-4.0); Glucose, Blood 144.0 mg/dL (70-99); Phosphorus, Blood 3.2 mg/dL (2.5-4.9); Potassium, Blood 3.5 mmol/L (3.5-5.5); Sodium, Blood 142.0 mmol/L (136-145); Total Iron Binding Capacity 164.0 ug/dL (250-450); Total Protein, Blood 5.0 g/dL (6.4-8.2)
== END ==
LOC: LAB SHORT 15:44 → LAB 15:44
PROVIDERS: Internal Medicine Hematology & Oncology
DX: E83.119 Hemochromatosis, unspecified (principal)
CPT/HCPCS: 80053; 82728; 83540; 83550; 84100; 85025